=== PATIENT | female | born 1940 | race African-American/Black ===

== ENCOUNTER 2016-05-14 08:34 | Inpatient (IN) ==
[2016-05-14] MEDS ORDERED: GLUCAGON 1 MG VIAL IM PRN (10:06)
[2016-05-14] MEDS ORDERED: ONDANSETRON 4 MG/2 ML VIAL IV PRN (10:06)
[2016-05-14] MEDS ORDERED: MORPHINE 2 MG/1 ML SYRINGE IV PRN (10:06)
[2016-05-14] MEDS ORDERED: ACETAMINOPHEN 325 MG TABLET PO PRN (10:06)
[2016-05-14] MEDS ORDERED: ZALEPLON 5 MG CAPSULE PO PRN (10:06)
[2016-05-14] MEDS ORDERED: DEXTROSE 50% 25 GM/50 ML VIAL IV PRN (10:06)
[2016-05-14] MEDS ORDERED: traMADol 50 MG TABLET PO PRN (10:14)
[2016-05-14 13:46] LABS: Basophils # 0.2 10*3/uL (0.0-0.2); Basophils % 1.3 % (0.0-0.8); Eosinophils # 0.2 10*3/uL (0.0-0.87); Eosinophils % 0.9 % (0.00-10.9); Hematocrit 23.8 VOL% (35.7-47.0); Hemoglobin 7.5 GM/DL (12.0-16.0); Immature Granulocytes % 8.1 %; Immature Granulocytes Absolute 1.39 #; Lymphocytes # 3.9 10*3/uL (1.4-4.0); Lymphocytes % 22.8 % (21.3-54.2); Mean Corpuscular HGB Conc 31.5 GM/DL (32-36); Mean Corpuscular Hemoglobin 33 PG (27-34); Mean Corpuscular Volume 105.8 FL (87-102); Mean Platelet Volume 10.5 FL (9.6-12.0); Monocytes # 2.6 10*3/uL (0.11-0.8); Monocytes % 14.8 % (1.7-12.7); NRBC # 1.77 10*3/uL; Neutrophils % 52.1 % (38.7-73.9); Platelet Count 116 T/CUMM (130-400); Red Blood Count 2.25 MC/CUMM (3.8-5.5); Red Cell Distribution Width 16.9 % (9.3-17.3); White Blood Count 17.2 T/CUMM (4-12)
--- NOTE | 2016-05-14 14:08 | Hospitalist History & Physical ---
<Edouard Elliott - Last Filed: 05/14/16 15:12> Assessment and Plan (1) Macrocytic anemia Status: Acute Assessment and plan: We will type and screen, place blood on hold for possible transfusion if levels continue to decline. Spoke with patient and daughter in great detail and they are in agreement with the plan of care. Will obtain iron studies for analysis. Current Visit: No (2) Leukocytosis Status: Acute Assessment and plan: We will obtain galarza cultures and start empiric antibiotics. Current Visit: Yes Qualifiers: Leukocytosis type: unspecified Qualified Code(s): D72.829 - Elevated white blood cell count, unspecified History of Present Illness Chief complaint: Anemia/Leukocytosis History of present illness: Ms. Adams is a 75 year old female that presented to [facility] as a direct admission from her internal medical for the evaluation of anemia. She has a rather impressive medical history of diabetes, hypertension, dislipidemia, seasonal allergies, and sciatica. She has a medical history of cholecstectomy. She reports intermittant pain to her hands and hips that started a few months ago. [place] was [place] [facility] [place]. She last seen on yesterday and labs were obtained which revealed anemia with an H/H of 7.8/24.6 and hypercalcemia with a calcium of 11.6. She was given a consult to see Dr. Baron for evaluation for possible multiple myloma. She will be admitted under the hospitalist services for continuation of care. We will consult Dr. Baron and Dr. Feng to aid in the management of her care. Home Medications Medication Instructions Recorded Confirmed Type Aspirin [Ecotrin] 81 mg PO DAILY 09/03/14 05/14/16 History PARoxetine [Paxil] 20 mg PO DAILY 09/03/14 05/14/16 History Potassium Chloride 20 meq PO BEDTIME 09/03/14 05/14/16 History amLODIPine [Norvasc] 10 mg PO DAILY 09/03/14 05/14/16 History metFORMIN [Glucophage] 500 mg PO BID W/MEALS 09/03/14 05/14/16 History Ascorbic Acid Tab [Vitamin C Tab] 1,000 mg PO BID 12/18/15 05/14/16 History Cetirizine Tab [ZyrTEC Tab] 10 mg PO DAILY 12/18/15 05/14/16 History Cholecalciferol (Vitamin D3) 1,000 unit PO DAILY 12/18/15 05/14/16 History [Vitamin D3] Docusate Sodium Cap [Colace Cap] 100 mg PO BEDTIME PRN 12/18/15 05/14/16 History Fluticasone Propionate 1 spray BOTH NARES DAILY PRN 12/18/15 05/14/16 History [Fluticasone 50 mcg Nasal [place]] HydrOXYzine PAMOATE CAP [Vistaril 25 mg PO Q8H PRN 12/18/15 05/14/16 History Cap] Ketorolac Tab [Toradol Tab] 10 mg PO Q6H PRN 12/18/15 05/14/16 History Losartan [Cozaar] 100 mg PO DAILY 12/18/15 05/14/16 History Simvastatin [Zocor] 40 mg PO BEDTIME 12/18/15 05/14/16 History Spironolactone [Aldactone] 25 mg PO DAILY PRN 12/18/15 05/14/16 History Esomeprazole Magnesium [Nexium] 40 mg PO BID 30 Days 12/20/15 05/14/16 Rx Ferrous Gluconate 324 mg PO BID #0 12/20/15 05/14/16 Rx Allergies Allergy/AdvReac Type Severity Reaction Status Date / Time codeine Allergy Mild RASH Verified 12/18/15 02:15 metronidazole [From Flagyl] Allergy Mild RASH Verified 12/18/15 02:15 prednisone Allergy Mild RASH Verified 12/18/15 02:15 promethazine [From Phenergan] Allergy Mild RASH Verified 12/18/15 02:15 Medical,Surgical,& Family Hx - Medical History Cardio: History of: Hypertension No history of: Aneurysm, Cardiac Dysrhythmia, Cerebrovascular Disease, Congenital Heart Disease, CHF, CAD, [place], Pacemaker, PVD, Valvular Heart Disease, Cardiovascular Problems Neurology: No history of: Brain Aneurysm, Cerebral Hemorrhage, Cerebrovascular Accident , Cerebral Palsy, Dementia, Migraine, Multiple Sclerosis, Parkinson's Disease, Peripheral Neuropathy, Seizures, TIA, Vertigo, Neurologocal Cancer Endocrine: History of: Diabetes Mellitus (NIDDM) No history of: Dyslipidemia Respiratory: No history of: Asthma, Bronchitis, COPD, Intubation, Obstructive Sleep Apnea , Pulmonary Embolism, Pulmonary Hypertension, Pneumonia, Lung Cancer, Respiratory Problems Gastrointestinal: History of: GERD Musculoskeletal: History of: Musculoskeletal Problems (chronic hip pain) Hematology: History of: Anemia - Surgical History Cardiac Surgeries: Patient Denies: Femoral-Popliteal Bypass Graft, Cardiac Catheterization, Cardiac Surgery, Carotid Endarterectomy, Internal Defibrillator, Vascular Access Devices Thoracic Surgeries: Patient denies;: Organ Transplant, Lobectomy Neurologic Surgeries: Patient denies: Brain Aneurysm, Cerebral Hemorrhage, Neurologic Surgery HEENT Surgeries: Patient denies: Carotid Endarterectomy Abdominal Surgeries: Surgical HX of: Cholecystectomy Patient denies: Splenectomy - Family History Family History: Reports;: Family Hypertension - Social History Smoking Status: Current every day smoker - Constitutional Constitutional: Present: malaise, weakness - EENT Eyes: Absent: blurry vision, diplopia, loss of vision Ears: Absent: decreased hearing, ear discharge, ear pain, tinnitus Nose, mouth and throat: Absent: dysphagia, epistaxis - Cardiovascular Cardiovascular: Absent: chest pain at rest, chest pain with activity, dyspnea, dyspnea on exertion, edema, palpitations - Respiratory Respiratory: Absent: cough, dyspnea, hemoptysis, dyspnea on exertion - Gastrointestinal Gastrointestinal: Absent: melena, nausea, vomiting - Musculoskeletal Musculoskeletal: Present: arthralgias, myalgias Exam - Constitutional Vitals: Period Temp Pulse Resp BP Sys/[place] Pulse Ox Last 24 Hr 97.8 F 100 19 119/91 97 General appearance: normal weight, no acute distress - Head Head exam: Present: normal inspection, normocephalic. Absent: abrasion, contusion - Eye Eye exam: Present: conjunctival injection Pupils: Present: JOSE, normal accommodation. Absent: constricted - ENT ENT exam: Present: normal exam - Neck Neck exam: Present: normal inspection. Absent: lymphadenopathy, meningismus, tenderness - Respiratory Respiratory exam: Present: clear to auscultation bilaterally. Absent: rales, rhonchi, stridor, wheezes - Cardiovascular Cardiovascular exam: Present: regular rate and rhythm. Absent: carotid bruit, diastolic murmur, gallop, rubs, systolic murmur - GI/Abdominal GI/Abdominal exam: Present: normal bowel sounds, soft. Absent: distended, mass , tenderness - Extremities Exam Extremities exam: Present: normal inspection, normal capillary refill, full ROM - Back Exam Back exam: Present: normal inspection - Neurological Exam Neurological exam: Present: alert, oriented X3, CN II-XII intact - Psychiatric Psychiatric exam: Present: normal affect, normal mood - Skin Skin exam: Present: normal color, dry Results - Labs CBC & BMP: 05/14/16 13:16 05/14/16 13:16 Lab Results: I have reviewed the past 24 hour labs Quality Measures - VTE Contraindication to Pharmacological VTE Prophylaxis: Active Bleeding <Mena Ramos - Last Filed: 05/14/16 17:34> Assessment and Plan (1) Hypercalcemia Status: Acute Current Visit: Yes (2) Arthritis Status: Acute Current Visit: Yes (3) Leukocytosis Status: Acute Current Visit: Yes Qualifiers: Leukocytosis type: unspecified Qualified Code(s): D72.829 - Elevated white blood cell count, unspecified (4) Macrocytic anemia Status: Acute Current Visit: No History of Present Illness History of present illness: Ms. Adams is a 75 year old female with diabetes hypertension dyslipidemia and seasonal allergies as well as sciatic nerve pain in the right leg. She appears to have arthritic changes in her hands and shoulders. She was admitted for anemia with an elevated calcium and erythrocyte sedimentation rate. She reports a normal EGD and colonoscopy done in January [address] Feng. Her primary care physician was concerned that the patient may have multiple myeloma and has asked that we admit her for workup. Consult will be placed for hematology oncology, and the appropriate tests ordered. I evaluated this patient and completed an independent history and physical examination. I coordinated care with ZHANE Chan. I agree with the documentation that she provides above. Exam - Constitutional Vitals: Period Temp Pulse Resp BP Sys/[place] Pulse Ox Last 24 Hr 97.8 F-97.8 F 100-100 19-20 119-133/61-91 90-97 - Respiratory Respiratory exam: Present: clear to auscultation bilaterally - Cardiovascular Cardiovascular exam: Present: regular rate and rhythm - GI/Abdominal GI/Abdominal exam: Present: normal bowel sounds, soft. Absent: distended, tenderness - Extremities Exam Extremities exam: Present: other (Arthritic changes noted in the bilateral hands with clubbing. No cyanosis.) - Neurological Exam Neurological exam: Present: alert, oriented X3, CN II-XII intact - Psychiatric Psychiatric exam: Present: normal affect, normal mood - Skin Skin exam: Present: normal color, warm, dry Results - Labs CBC & BMP: 05/14/16 13:16 05/14/16 13:16 Lab Results: I have reviewed the past 24 hour labs
[2016-05-14] MEDS: SODIUM CHLORIDE 0.9% 1,000 ML IV SCH ×2 (14:15→21:24)
[2016-05-14] MEDS: INSULIN REGULAR 100 UNIT/ML SUBCUT SCH ×3 (14:16→20:43)
[2016-05-14 14:27] LABS: Alanine Aminotransferase 16 U/L (13-56); Albumin 4.1 G/DL (3.4-5.0); Alkaline Phosphatase 121 U/L (45-117); Aspartate Amino Transferase 25 U/L (0-37); Bilirubin,Total < 0.39 MG/DL (0.2-1.0); Blood Urea Nitrogen 28 MG/DL (7-18); Calcium 11.1 MG/DL (8.5-10.1); Cholesterol 138 MG/DL (50-200); Glucose 140 MG/DL (74-106); HDL Cholesterol 47 MG/DL (40-60); Magnesium 3.9 MG/DL (1.8-2.4); Risk Ratio 2.94; Sodium 143 MMOL/L (136-145); Thyroid Stimulating Hormone 0.649 uIU/ml (0.358-3.74); Total Protein 6.7 G/DL (6.4-8.3); Triglycerides 182 MG/DL (2-150); VLDL CHOLESTEROL 36.4 MG/DL
[2016-05-14] MEDS ORDERED: FLUTICASONE 50 MCG NASAL SPRAY 16 GM BOTTLE BOTH NARES PRN (15:12)
[2016-05-14] MEDS ORDERED: DOCUSATE SODIUM 100 MG CAPSULE PO PRN (15:12)
[2016-05-14] MEDS ORDERED: HydrOXYzine PAMOATE 25 MG CAPSULE PO PRN (15:12)
--- NOTE | 2016-05-14 15:20 | Gastrointestinal Consult Note ---
<Grace Hurd - Last Filed: 05/14/16 15:26> Assessment and Plan (1) Symptomatic anemia Status: Acute Assessment and plan: 4/5-Onset of weakness, fatigue with hx of AVMs, kev erosions. Recent EGD and colonoscopy. Hgb 7.5. No overt bleeding at present time. Stool for occult blood. Monitor serial HH. Transfuse as necessary. Plan and addendum to follow by DR Feng. Current Visit: No History of Present Illness Chief complaint: Anemia History of present illness: Ms. Adams is a 75 year old female who presented to the ER for admission following appointment on yesterday with her PCP Ginna Boateng. Pt states that she presented to the clinic for evaluation due to some weakness and cramps in her hands. She states that she had labwork done and was found to be anemic and was sent to the ER for further evaluation and blood transfusion. Pt states that she has been doing relatively well as of recent until the last several days she has experienced some increase fatigue. She states that she has not noted any overt bleeding, that her stools are dark but this is no change from her normal stool due to taking iron supplements. She denies any recent weight loss, nausea or vomiting. Denies any abdominal pain. Denies any epigastric pain, dyspepsia, belching, bloating or worsening GERD. She takes Nexium daily which she states control her reflux well. She denies any NSAID use and states she does not take the Toradol on her home med list. She has a history of anemia in December of this past year in which she underwent a GI workup with EGD with GERD and hiatal hernia with Kev erosions. She also had a colonoscopy with findings of colon polyps (hyperplastic polyp), diverticulosis with scarring and right colon angiodysplasia. Her discharge hemoglobin in December noted at 8.3 now admitted with hemoglobin at 7.5. MCV 105, BUN/Cr ratio 16. Home Medications Medication Instructions Recorded Confirmed Type Aspirin [Ecotrin] 81 mg PO DAILY 09/03/14 05/14/16 History PARoxetine [Paxil] 20 mg PO DAILY 09/03/14 05/14/16 History Potassium Chloride 20 meq PO BEDTIME 09/03/14 05/14/16 History amLODIPine [Norvasc] 10 mg PO DAILY 09/03/14 05/14/16 History metFORMIN [Glucophage] 500 mg PO BID W/MEALS 09/03/14 05/14/16 History Ascorbic Acid Tab [Vitamin C Tab] 1,000 mg PO BID 12/18/15 05/14/16 History Cetirizine Tab [ZyrTEC Tab] 10 mg PO DAILY 12/18/15 05/14/16 History Cholecalciferol (Vitamin D3) 1,000 unit PO DAILY 12/18/15 05/14/16 History [Vitamin D3] Docusate Sodium Cap [Colace Cap] 100 mg PO BEDTIME PRN 12/18/15 05/14/16 History Fluticasone Propionate 1 spray BOTH NARES DAILY PRN 12/18/15 05/14/16 History [Fluticasone 50 mcg Nasal [place]] HydrOXYzine PAMOATE CAP [Vistaril 25 mg PO Q8H PRN 12/18/15 05/14/16 History Cap] Ketorolac Tab [Toradol Tab] 10 mg PO Q6H PRN 12/18/15 05/14/16 History Losartan [Cozaar] 100 mg PO DAILY 12/18/15 05/14/16 History Simvastatin [Zocor] 40 mg PO BEDTIME 12/18/15 05/14/16 History Spironolactone [Aldactone] 25 mg PO DAILY PRN 12/18/15 05/14/16 History Esomeprazole Magnesium [Nexium] 40 mg PO BID 30 Days 12/20/15 05/14/16 Rx Ferrous Gluconate 324 mg PO BID #0 12/20/15 05/14/16 Rx Allergies Allergy/AdvReac Type Severity Reaction Status Date / Time codeine Allergy Mild RASH Verified 12/18/15 02:15 metronidazole [From Flagyl] Allergy Mild RASH Verified 12/18/15 02:15 prednisone Allergy Mild RASH Verified 12/18/15 02:15 promethazine [From Phenergan] Allergy Mild RASH Verified 12/18/15 02:15 Medical,Surgical,& Family Hx - Medical History Cardio: History of: Hypertension No history of: Aneurysm, Cardiac Dysrhythmia, Cerebrovascular Disease, Congenital Heart Disease, CHF, CAD, [place], Pacemaker, PVD, Valvular Heart Disease, Cardiovascular Problems Neurology: No history of: Brain Aneurysm, Cerebral Hemorrhage, Cerebrovascular Accident , Cerebral Palsy, Dementia, Migraine, Multiple Sclerosis, Parkinson's Disease, Peripheral Neuropathy, Seizures, TIA, Vertigo, Neurologocal Cancer Endocrine: History of: Diabetes Mellitus (NIDDM) No history of: Dyslipidemia Respiratory: No history of: Asthma, Bronchitis, COPD, Intubation, Obstructive Sleep Apnea , Pulmonary Embolism, Pulmonary Hypertension, Pneumonia, Lung Cancer, Respiratory Problems Gastrointestinal: History of: GERD Musculoskeletal: History of: Musculoskeletal Problems (chronic hip pain) Hematology: History of: Anemia - Surgical History Cardiac Surgeries: Patient Denies: Femoral-Popliteal Bypass Graft, Cardiac Catheterization, Cardiac Surgery, Carotid Endarterectomy, Internal Defibrillator, Vascular Access Devices Thoracic Surgeries: Patient denies;: Organ Transplant, Lobectomy Neurologic Surgeries: Patient denies: Brain Aneurysm, Cerebral Hemorrhage, Neurologic Surgery HEENT Surgeries: Patient denies: Carotid Endarterectomy Abdominal Surgeries: Surgical HX of: Cholecystectomy Patient denies: Splenectomy - Family History Family History: Reports;: Family Hypertension - Social History Smoking Status: Current every day smoker 12 point system: reviewed and no additional remarkable complaints except as stated - Constitutional Constitutional: Present: as per HPI, weakness - EENT Eyes: Present: as per HPI Ears: Present: as per HPI Nose, mouth and throat: Present: as per HPI - Cardiovascular Cardiovascular: Present: as per HPI - Respiratory Respiratory: Present: as per HPI - Gastrointestinal Gastrointestinal: Present: as per HPI - Genitourinary Genitourinary: Present: as per HPI - Musculoskeletal Musculoskeletal: Present: as per HPI - Neurological Neurological: Present: as per HPI - Psychiatric Psychiatric: Present: as per HPI - Endocrine Endocrine: Present: as per HPI - Hematologic/Lymphatic Hematologic/Lymphatic: Present: as per HPI Exam - Constitutional Vitals: Period Temp Pulse Resp BP Sys/[place] Pulse Ox Last 24 Hr 97.8 F 100 19 119/91 97 General appearance: normal weight, no acute distress - Head Head exam: Present: normal inspection, normocephalic - Eye Eye exam: Present: other (lids and conjunctiva unremarkable). Absent: scleral icterus - ENT ENT exam: Present: normal exam, normal oropharynx - Neck Neck exam: Present: normal inspection - Respiratory Respiratory exam: Present: clear to auscultation bilaterally. Absent: rales, rhonchi, wheezes - Cardiovascular Cardiovascular exam: Present: regular rate and rhythm. Absent: diastolic murmur , JVD, systolic murmur - GI/Abdominal GI/Abdominal exam: Present: normal bowel sounds, soft. Absent: ascites, distended, mass, organomegaly, tenderness - Extremities Exam Extremities exam: Present: normal inspection, full ROM - Back Exam Back exam: Present: normal inspection - Neurological Exam Neurological exam: Present: alert, oriented X3 - Psychiatric Psychiatric exam: Present: normal affect, normal mood - Skin Skin exam: Present: normal color, warm, dry Results - Labs CBC & BMP: 05/14/16 13:16 05/14/16 13:16 Lab Results: I have reviewed the past 24 hour labs Quality Measures - VTE Contraindication to Pharmacological VTE Prophylaxis: Active Bleeding <Linden Feng - Last Filed: 05/14/16 18:53> History of Present Illness History of present illness: Ms. Adams is a 75 year old female Exam - Constitutional Vitals: Period Temp Pulse Resp BP Sys/[place] Pulse Ox Last 24 Hr 97.8 F-97.8 F 100-100 19-20 119-133/61-91 90-97 Results - Labs CBC & BMP: 05/14/16 13:16 05/14/16 13:16
--- NOTE | 2016-05-14 17:10 | Oncology Consult Note ---
History of Present Illness History of present illness: Ms. Adams is a 75 year old female who was supposed to see me in my office for low blood counts. She has been documented to have a hemoglobin of 9.0 on March 27, [address] Boateng's office. She was reported to have a normal platelet count of 141,000 and actually had a white cell count of 12,800 at that time. She was noted to have an MCV of 103.5 with a high RDW of 16.1. Her reticulocyte count on that same date was 2.7 but this was uncorrected and would be either normal or low when corrected. I note that on March 27, 2016 the patient had a serum creatinine of 1.36 which is slightly higher with a serum calcium of 10.3 and an alkaline phosphatase that was minimally elevated at 120. The rest of her comprehensive metabolic profile was normal. This patient's home medications include Ecotrin, Paxil, potassium chloride, amlodipine, metformin, ascorbic acid, cetirizine, vitamin D3, docusate, Toradol , Cozaar, Zocor, Aldactone, Nexium and ferrous gluconate. Allergies include: Codeine, metronidazole, prednisone and promethazine ( Phenergan). ROS Gen.: No history of fever, chills, fatigue, decreased appetite, night sweats, fever, weight gain or weight loss. Eyes: No history of chronic disease, infections or visual loss. ENT: She has a history of postnasal drainage. No history of chronic infections , epistaxis, chronic sore throat Lungs: She has a history of chronic cough without sputum production. No history of asthma, emphysema, hemoptysis, chronic pleurisy or long-term or chronic infections Cardiovascular: She has a history of irregular heartbeat and palpitations. No history of syncope. No history of angina, coronary artery disease, congestive heart failure, cardiovascular surgery or DVT/VTE Vascular: No history of claudication, cyanosis, cool extremities, edema, right nods, thrombophlebitis, varicose veins, ulcers or paresthesia GI: She reports blood in her stools and she also reports constipation as well as esophageal reflux. No history of liver disease, gallbladder disease or pancreatic disease. : History of back pain but no history of kidney stones, chronic kidney infections or hematuria. Musculoskeletal: She has a history of back pain, bone and joint aches and pains , muscle weakness and neck stiffness. No history of rheumatologic manifestations. Neurologic: She has a history of headaches. No history of seizures, convulsions or paralysis. Psychiatric: No history of chronic psychiatric illness or psychiatric medications. Lymphatic: No history of significant or long-term lymphadenopathy Hematologic: No history of anemia, bleeding disorders or blood dyscrasias or long-term elevation or depression white cell count or petechiae. Skin: No history of chronic skin infections or rashes or significant skin lesions. Physical examination: General: Examination is relatively normal for age. She is well-developed, well- nourished and in no acute distress. Eyes: Lids and conjunctive are normal. ENT: Her oral mucosa and pharynx are normal. Her hearing is normal. Neck: Her trachea is midline and she has no neck masses. Thyroid appears normal. Pulmonary: Breath sounds are normal without rubs, rales or rhonchi. There is symmetrical unlabored chest motion with respiration. Cardiovascular: Her heart rhythm is regular with a grade 2/6 systolic ejection murmur heard best in the second left intercostal space or possibly on the right side. There is no jugular venous distention. Peripheral pulses are normal. Abdomen: I palpate no abdominal masses or organomegaly and no splenomegaly. Musculoskeletal: She has arthritis and some of it is in the proximal interphalangeal joints of the metacarpal/phalangeal joints. Neurologic: Cranial nerves II through XII are intact. There are no focal neurologic deficits. Nodes: There is no cervical, supraclavicular, axillary or submandibular adenopathy. Skin: I see no significant skin lesions or rashes. Breasts: Breast examination was deferred. Lab work on this admission includes white cell count of 17,200 with a hemoglobin of 7.5 and a hematocrit of 23.8. Her MCV is 105.8 with an RDW that is normal at 16.9. Her platelet count is 116,000 with a normal mean platelet volume of 10.5. Her comprehensive metabolic profile includes a serum calcium of 11.1. Let us stop her vitamin D. The patient also has a serum creatinine of 1.7 and a serum magnesium of 3.9. I have ordered a serum iron and iron binding capacity, folic acid and B12 level , haptoglobin, rheumatoid factor and JOHNNIE and I will order a reticulocyte count as well. I think it at least a component of her anemia is due to chronic disease and I am testing her for rheumatologic disease. She has renal disease that may be contributing as well. See my orders. Home Medications Medication Instructions Recorded Confirmed Type Aspirin [Ecotrin] 81 mg PO DAILY 09/03/14 05/14/16 History PARoxetine [Paxil] 20 mg PO DAILY 09/03/14 05/14/16 History Potassium Chloride 20 meq PO BEDTIME 09/03/14 05/14/16 History amLODIPine [Norvasc] 10 mg PO DAILY 09/03/14 05/14/16 History metFORMIN [Glucophage] 500 mg PO BID W/MEALS 09/03/14 05/14/16 History Ascorbic Acid Tab [Vitamin C Tab] 1,000 mg PO BID 12/18/15 05/14/16 History Cetirizine Tab [ZyrTEC Tab] 10 mg PO DAILY 12/18/15 05/14/16 History Cholecalciferol (Vitamin D3) 1,000 unit PO DAILY 12/18/15 05/14/16 History [Vitamin D3] Docusate Sodium Cap [Colace Cap] 100 mg PO BEDTIME PRN 12/18/15 05/14/16 History Fluticasone Propionate 1 spray BOTH NARES DAILY PRN 12/18/15 05/14/16 History [Fluticasone 50 mcg Nasal [place]] HydrOXYzine PAMOATE CAP [Vistaril 25 mg PO Q8H PRN 12/18/15 05/14/16 History Cap] Ketorolac Tab [Toradol Tab] 10 mg PO Q6H PRN 12/18/15 05/14/16 History Losartan [Cozaar] 100 mg PO DAILY 12/18/15 05/14/16 History Simvastatin [Zocor] 40 mg PO BEDTIME 12/18/15 05/14/16 History Spironolactone [Aldactone] 25 mg PO DAILY PRN 12/18/15 05/14/16 History Esomeprazole Magnesium [Nexium] 40 mg PO BID 30 Days 12/20/15 05/14/16 Rx Ferrous Gluconate 324 mg PO BID #0 12/20/15 05/14/16 Rx Allergies Allergy/AdvReac Type Severity Reaction Status Date / Time codeine Allergy Mild RASH Verified 12/18/15 02:15 metronidazole [From Flagyl] Allergy Mild RASH Verified 12/18/15 02:15 prednisone Allergy Mild RASH Verified 12/18/15 02:15 promethazine [From Phenergan] Allergy Mild RASH Verified 12/18/15 02:15 Medical,Surgical,& Family Hx - Medical History Cardio: History of: Hypertension No history of: Aneurysm, Cardiac Dysrhythmia, Cerebrovascular Disease, Congenital Heart Disease, CHF, CAD, NC, Pacemaker, PVD, Valvular Heart Disease, Cardiovascular Problems Neurology: No history of: Brain Aneurysm, Cerebral Hemorrhage, Cerebrovascular Accident , Cerebral Palsy, Dementia, Migraine, Multiple Sclerosis, Parkinson's Disease, Peripheral Neuropathy, Seizures, TIA, Vertigo, Neurologocal Cancer Endocrine: History of: Diabetes Mellitus (NIDDM) No history of: Dyslipidemia Respiratory: No history of: Asthma, Bronchitis, COPD, Intubation, Obstructive Sleep Apnea , Pulmonary Embolism, Pulmonary Hypertension, Pneumonia, Lung Cancer, Respiratory Problems Gastrointestinal: History of: GERD Musculoskeletal: History of: Musculoskeletal Problems (chronic hip pain) Hematology: History of: Anemia - Surgical History Cardiac Surgeries: Patient Denies: Femoral-Popliteal Bypass Graft, Cardiac Catheterization, Cardiac Surgery, Carotid Endarterectomy, Internal Defibrillator, Vascular Access Devices Thoracic Surgeries: Patient denies;: Organ Transplant, Lobectomy Neurologic Surgeries: Patient denies: Brain Aneurysm, Cerebral Hemorrhage, Neurologic Surgery HEENT Surgeries: Patient denies: Carotid Endarterectomy Abdominal Surgeries: Surgical HX of: Cholecystectomy Patient denies: Splenectomy - Family History Family History: Reports;: Family Hypertension - Social History Smoking Status: Current every day smoker Exam - Constitutional Vitals: Period Temp Pulse Resp BP Sys/[place] Pulse Ox Last 24 Hr 97.8 F-97.8 F 100-100 19-20 119-133/61-91 90-97 Results - Labs CBC & BMP: 05/14/16 13:16 05/14/16 13:16 Quality Measures - VTE Contraindication to Pharmacological VTE Prophylaxis: Active Bleeding
[2016-05-14 17:51] LABS: Band Neutrophils 7 % (0-10); Lymphocytes 31 % (20-55); Nucleated Red Blood Cells 8 (0-5); Platelet Estimate Normal; Polychromasia Slight; Segmented Neutrophils 59 % (50-85); Total Cells Counted 100
[2016-05-14 18:06] LABS: % Iron Saturation 42.6 % (18-50); Iron 163 UG/DL (50-170); Iron Binding Capacity 383 UG/DL (250-450); Rheumatoid Factor < 15 IU/ML (<15)
[2016-05-14 18:39] LABS: Folate 18.1 NG/ML (5.4-24.0); Vitamin B12 1573 PG/ML (211-911)
[2016-05-14 18:43] LABS: Apearance,Urine Slightly Hazy (Clear); Bacteria,Urine Occasional /HPF (Few); Bilirubin,Urine Negative (Negative); Blood, Urine Negative (Negative); Glucose,Urine (UA) Negative (Negative); Ketones,Urine Negative (Negative); Mucus,Urine Moderate /LPF (Occasional); Nitrite,Urine Negative (Negative); Protein,Urine 100 MG/DL; RBC,Urine 2 /HPF (0-4); Squamous Epithelial Cell,Urine Occasional /HPF (0-10); Urine Color Yellow (Yellow); Urine Specific Gravity 1.023 (1.001-1.035); Urine Urobilinogen < 2.0 EU/DL (0.2-1.0); WBC,Urine 26 /HPF (0-6)
[2016-05-14] MEDS ORDERED: PANTOPRAZOLE 40 MG TABLET PO SCH (21:00)
[2016-05-14] MEDS ORDERED: SIMVASTATIN 40 MG TABLET PO SCH (21:00)
[2016-05-14] MEDS ORDERED: POTASSIUM CHLORIDE 10 MEQ TABLET PO SCH (21:00)
[2016-05-14] MEDS ORDERED: ASCORBIC ACID 500 MG TABLET PO SCH (21:00)
[2016-05-14] MEDS ORDERED: FERROUS GLUCONATE 324 MG TABLET PO SCH (21:00)
[2016-05-15 04:51] LABS: Basophils # 0.2 10*3/uL (0.0-0.2); Basophils % 1.2 % (0.0-0.8); Eosinophils # 0.1 10*3/uL (0.0-0.87); Hematocrit 21.2 VOL% (35.7-47.0); Immature Granulocytes % 8.9 %; Immature Granulocytes Absolute 1.17 #; Lymphocytes # 3.5 10*3/uL (1.4-4.0); Lymphocytes % 26.8 % (21.3-54.2); Mean Corpuscular HGB Conc 30.2 GM/DL (32-36); Mean Corpuscular Hemoglobin 33 PG (27-34); Mean Corpuscular Volume 107.6 FL (87-102); Monocytes % 14.9 % (1.7-12.7); NRBC # 1.15 10*3/uL; Neutrophils # 6.2 10*3/uL (1.4-7.4); Neutrophils % 47.2 % (38.7-73.9); Platelet Count 104 T/CUMM (130-400); Red Blood Count 1.97 MC/CUMM (3.8-5.5); Red Cell Distribution Width 17.2 % (9.3-17.3); White Blood Count 13.1 T/CUMM (4-12)
[2016-05-15 04:55] LABS: Hemoglobin 6.4 GM/DL (12.0-16.0)
[2016-05-15] MEDS: SODIUM CHLORIDE 0.9% 1,000 ML IV SCH ×2 (05:06→14:00)
[2016-05-15] MEDS ORDERED: SODIUM CHLORIDE 0.9% 250 ML IV PRN (05:13)
[2016-05-15 05:22] LABS: % Iron Saturation 42.1 % (18-50); Ferritin 496.8 ng/ml (8-252)
[2016-05-15 05:26] LABS: Albumin 3.4 G/DL (3.4-5.0); Bilirubin,Total 0.5 MG/DL (0.2-1.0); Calcium 9.6 MG/DL (8.5-10.1); Osmolality,Calculated 298.4 MOS/KG (273-304); Potassium 3.7 MMOL/L (3.5-5.1); Total Protein 5.5 G/DL (6.4-8.3)
[2016-05-15 05:37] LABS: Folate 17.8 NG/ML (5.4-24.0); Vitamin B12 1568 PG/ML (211-911)
[2016-05-15 05:47] LABS: Band Neutrophils 10 % (0-10); Eosinophils 1 % (0-10); Lymphocytes 21 % (20-55); Metamyelocytes 1 %; Myelocytes 3 %; Nucleated Red Blood Cells 16 (0-5); Segmented Neutrophils 54 % (50-85); Total Cells Counted 100
[2016-05-15 05:48] LABS: Elliptocytes Few; Hypochromasia 1+; Microcytosis Slight; Platelet Estimate Decreased
[2016-05-15 06:47] LABS: Basophils # 0.2 10*3/uL (0.0-0.2); Basophils % 1.2 % (0.0-0.8); Eosinophils # 0.1 10*3/uL (0.0-0.87); Eosinophils % 0.8 % (0.00-10.9); Hematocrit 20.6 VOL% (35.7-47.0); Immature Granulocytes % 8.8 %; Immature Granulocytes Absolute 1.14 #; Lymphocytes # 3.6 10*3/uL (1.4-4.0); Lymphocytes % 27.4 % (21.3-54.2); Mean Corpuscular HGB Conc 31.1 GM/DL (32-36); Mean Corpuscular Hemoglobin 34 PG (27-34); Mean Corpuscular Volume 108.4 FL (87-102); Mean Platelet Volume 10.7 FL (9.6-12.0); Monocytes # 1.9 10*3/uL (0.11-0.8); Monocytes % 14.4 % (1.7-12.7); NRBC # 1.09 10*3/uL; Neutrophils # 6.2 10*3/uL (1.4-7.4); Neutrophils % 47.4 % (38.7-73.9); Platelet Count 112 T/CUMM (130-400); Red Cell Distribution Width 17.2 % (9.3-17.3)
[2016-05-15 06:53] LABS: Hemoglobin 6.4 GM/DL (12.0-16.0)
[2016-05-15 07:32] LABS: Albumin (SPE) 4.1 G/DL (3.2-5.3)
[2016-05-15 07:36] LABS: Albumin (SPE) Rel % 67.6 %; Alpha 1 (SPE) 0.2 G/DL (0.1-0.4); Alpha 1 (SPE) Rel % 3.9 %; Alpha 2 (SPE) 0.8 G/DL (0.4-1.0); Alpha 2 (SPE) Rel % 12.6 %; Beta (SPE) 0.6 G/DL (0.5-1.1); Beta (SPE) Rel % 10.7 %; Gamma (SPE) 0.3 G/DL (0.7-1.7); Gamma (SPE) Rel % 5.2 %
[2016-05-15 07:43] LABS: Band Neutrophils 8 % (0-10); Lymphocytes 34 % (20-55); Myelocytes 1 %; Nucleated Red Blood Cells 11 (0-5); Segmented Neutrophils 48 % (50-85); Total Cells Counted 100
[2016-05-15 07:44] LABS: Elliptocytes Few; Hypochromasia 1+; Platelet Estimate Decreased
[2016-05-15 07:45] LABS: Microcytosis Slight
[2016-05-15] MEDS: PANTOPRAZOLE 40 MG TABLET PO SCH ×2 (08:00→17:10)
[2016-05-15] MEDS: FERROUS GLUCONATE 324 MG TABLET PO SCH ×2 (08:00→17:09)
[2016-05-15] MEDS: INSULIN REGULAR 100 UNIT/ML SUBCUT SCH ×4 (08:08→21:32)
[2016-05-15] MEDS ORDERED: PANTOPRAZOLE 40 MG TABLET PO SCH (09:00)
[2016-05-15] MEDS ORDERED: CHOLECALCIFEROL 1,000 UNIT TABLET PO SCH (09:00)
--- NOTE | 2016-05-15 09:22 | Oncology Progress Note ---
Oncology Subjective PN Interval history: Lab work today includes a white cell count of 13,000 with a hemoglobin of 6.4, and MCV of 108.4, and RDW of 17.2, platelet count of 112,000. The patient has nucleated red cells in her circulation. Her sed rate is 60. Her uncorrected reticulocyte count is 3.7. It should be approximately half of this when corrected. Hemoglobin electrophoresis is pending. Haptoglobin level is elevated at 219. The patient's serum iron is 135, which is normal, with a normal iron binding capacity of 321. The B12 level is 1568 with folic acid level of 17.8. These were repeated because I could not tell from the electronic medical record will they have been done or not. A rheumatoid factor is less than 15. The serum protein electrophoresis is interpreted as demonstrating hyperglobulinemia. I am going to order serum free light chain and I am going to order a screen for [facility]. Maybe they will get done or may be not. Exam - Constitutional Vitals: Period Temp Pulse Resp BP Sys/[place] Pulse Ox Last 24 Hr 97.8 F-98.8 F 89-103 18-24 119-164/59-91 90-100 Results - Labs CBC & BMP: 05/15/16 03:48 05/15/16 03:48 Quality Measures - VTE Contraindication to Pharmacological VTE Prophylaxis: Active Bleeding
--- NOTE | 2016-05-15 09:48 | History and Physical Update ---
History and Physical Update - Physical Exam Mental Status: alert and oriented Heart: regular rate and rhythm Lung: clear to auscultation Abdomen: within normal limits Vitals: within normal limits
--- NOTE | 2016-05-15 09:51 | Operative Note ---
Date of procedure: 05/15/16 Pre-op diagnosis: Recurrent anemia with history of angiodysplasia Procedure: EGD with biopsy 75-year-old female admitted with severe anemia has history of angiodysplasia now for upper endoscopy to further evaluate. Informed consent was obtained for patient She was sedated with MAC anesthesia per anesthesia protocol. Patient placed in left lateral decubitus position the Olympus flexible video upper endoscope was inserted lower cavity under direct vision the esophagus was intubated. Findings: Esophagus-normal proximal mid esophageal mucosa distal esophagus small hiatal hernia otherwise normal no significant esophagitis, varices or stricture was seen. Stomach-normal insufflation. No blood present stomach. There is normal mucosa to direct retroflexed views of the body fundus and cardia the stomach. In the antrum of the stomach there are several superficial areas of small ulceration and erosion. Biopsies were taken. Scattered AVMs are seen without active bleeding. Pylorus is normal Duodenum normal bulb to third portion. The procedure was terminated placed our procedure well she is discharged recovery in good condition. Postop diagnosis: 1. Gastroesophageal reflux disease with small hiatal hernia-continue PPI and antireflux precautions. 2. Erosive gastritis-stop nonsteroidals (Toradol) and continue with twice daily PPI treatment. Follow-up biopsies positive for H. pylori will need treatment. 3. Angiodysplasia likely source of ongoing blood loss. Check bleeding scan if active bleeding develops otherwise will need to maximize blood production and transfuse as needed 4. Recent colonoscopy would not plan repeat colonoscopy unless evidence of active ongoing bleeding on bleeding scan. 5. I will be out over the next few days call coverage if needed I will check back on her Thursday if she remains hospitalized. Anesthesia: MAC Surgeon / Physician: Linden Feng Estimated blood loss: none Specimens: other (Erosive gastritis) Condition: stable Disposition: post procedure unit Results - Labs CBC & BMP: 05/15/16 03:48 05/15/16 03:48 Discharge Plan - Discharge Medications No Action metFORMIN [Glucophage] 500 mg PO BID W/MEALS Aspirin [Ecotrin] 81 mg PO DAILY amLODIPine [Norvasc] 10 mg PO DAILY Potassium Chloride 20 meq PO BEDTIME PARoxetine [Paxil] 20 mg PO DAILY Fluticasone Propionate [Fluticasone 50 mcg Nasal [place]] 1 spray BOTH NARES DAILY PRN PRN Reason: Nasal Congestion Spironolactone [Aldactone] 25 mg PO DAILY PRN PRN Reason: Edema Simvastatin [Zocor] 40 mg PO BEDTIME Cetirizine Tab [ZyrTEC Tab] 10 mg PO DAILY Losartan [Cozaar] 100 mg PO DAILY Docusate Sodium Cap [Colace Cap] 100 mg PO BEDTIME PRN PRN Reason: Constipation Cholecalciferol (Vitamin D3) [Vitamin D3] 1,000 unit PO DAILY Ascorbic Acid Tab [Vitamin C Tab] 1,000 mg PO BID Ketorolac Tab [Toradol Tab] 10 mg PO Q6H PRN PRN Reason: Pain HydrOXYzine PAMOATE CAP [Vistaril Cap] 25 mg PO Q8H PRN PRN Reason: Itching Esomeprazole Magnesium [Nexium] 40 mg PO BID 30 Days Ferrous Gluconate 324 mg PO BID #0 - Follow Up or Referral - Forms/Instructions
--- NOTE | 2016-05-15 09:52 | Anesthesia ---
Anesthesia Post OP - Post Ansesthetic Evaluation Patient seen in post op: Yes Resp: within normal limits CV: within normal limits Mental: within normal limits Temp: within normal limits [id number]: within normal limits Nausea and Vomiting: within normal limits Pain: within normal limits
[2016-05-15 09:55] LABS: Hemoglobin A1 (Alkaline) 97.9 % (96.5-98.5); Hemoglobin A2 (Alkaline) 2.1 % (1.5-3.5)
[2016-05-15 11:14] LABS: Immuno Free Light Chain Lambda 0.72 MG/DL (0.57-2.63)
[2016-05-15 11:45] LABS: Immuno Free Light Chain Ratio 1627.78 MG/DL (0.26-1.65)
[2016-05-15] MEDS: ASPIRIN EC 81 MG TABLET PO SCH (12:20)
[2016-05-15] MEDS: LOSARTAN 50 MG TABLET PO SCH (12:20)
[2016-05-15] MEDS: amLODIPine 10 MG TABLET PO SCH (12:20)
[2016-05-15] MEDS: PARoxetine 20 MG TABLET PO SCH (12:21)
[2016-05-15] MEDS: CETIRIZINE 10 MG TABLET PO SCH (12:21)
--- NOTE | 2016-05-15 13:42 | Hospitalist Progress Note ---
Assessment and Plan (1) Hypercalcemia Status: Acute Current Visit: Yes (2) Arthritis Status: Acute Current Visit: Yes (3) Leukocytosis Status: Acute Assessment and plan: No evidence of ongoing infection. Current Visit: Yes Qualifiers: Leukocytosis type: unspecified Qualified Code(s): D72.829 - Elevated white blood cell count, unspecified (4) Macrocytic anemia Status: Acute Assessment and plan: Iron and B12 and folate levels checked. Transfused 2 units of packed red blood cells. No evidence of GI bleeding. Likely anemia of chronic disease. hematology workup pending. Current Visit: No Hospitalist: Subjective Interval history: Patient seen and examined with her daughter and nurse at the bedside. She reports severe pain in her hands from arthritis. She has received blood transfusion this morning due to a low hemoglobin of 6.4. She has undergone upper endoscopy by Dr. Feng which showed no evidence of active bleeding. Case was discussed with Dr. Baron this morning. Further testing has been ordered including a 24-hour urine. If her blood counts are stable she can be discharged tomorrow morning to follow- up as an outpatient with Dr. Baron scheduled on May 21. Exam - Constitutional Vitals: Period Temp Pulse Resp BP Sys/[place] Pulse Ox Last 24 Hr 97.7 F-98.8 F 89-103 18-98 133-170/57-77 90-100 Exam: Constitutional System: Mild distress. No tremulousness. Head: Normocephalic, atraumatic. Ears, Nose and Throat System: No pain or tenderness. No epistaxis or discharge Eyes System: Pupils equal, round, and reactive. Extraocular muscles intact. Neck: Supple, without adenopathy, No jugular venous distention. No thyromegaly, neck mass, or prior surgery apparent. Respiratory System: Chest clear to auscultation. Cardiovascular System: Heart with regular rate and rhythm. No murmur. GI System: Abdomen soft, nontender. Normo active bowel sounds present. Musculoskeletal System: limbs with no pedal edema. Full distal pulses. Arthritic changes noted in bilateral hands. Clubbing noted in the nails. Neurological System: No discernable sensory deficit. No aphasia Psychiatric System: Conversation is rational Results - Labs CBC & BMP: 05/15/16 03:48 05/15/16 03:48 Lab Results: I have reviewed the past 24 hour labs Quality Measures - VTE Contraindication to Pharmacological VTE Prophylaxis: Active Bleeding
[2016-05-15] MEDS: POTASSIUM CHLORIDE 10 MEQ TABLET PO SCH (17:09)
[2016-05-15] MEDS: SIMVASTATIN 40 MG TABLET PO SCH (17:10)
[2016-05-15 17:50] LABS: Basophils # 0.1 10*3/uL (0.0-0.2); Basophils % 0.9 % (0.0-0.8); Eosinophils # 0.1 10*3/uL (0.0-0.87); Eosinophils % 1.4 % (0.00-10.9); Hematocrit 28.2 VOL% (35.7-47.0); Hemoglobin 9.3 GM/DL (12.0-16.0); Immature Granulocytes % 9.3 %; Immature Granulocytes Absolute 0.92 #; Lymphocytes # 1.8 10*3/uL (1.4-4.0); Lymphocytes % 17.9 % (21.3-54.2); Mean Corpuscular Hemoglobin 33 PG (27-34); Mean Corpuscular Volume 98.6 FL (87-102); Mean Platelet Volume 10.2 FL (9.6-12.0); Monocytes # 1.6 10*3/uL (0.11-0.8); Monocytes % 16.2 % (1.7-12.7); NRBC # 1.13 10*3/uL; Neutrophils # 5.4 10*3/uL (1.4-7.4); Neutrophils % 54.3 % (38.7-73.9); Platelet Count 92 T/CUMM (130-400); Red Blood Count 2.86 MC/CUMM (3.8-5.5); Red Cell Distribution Width 17.5 % (9.3-17.3); White Blood Count 9.9 T/CUMM (4-12)
[2016-05-15 22:16] LABS: Band Neutrophils 5 % (0-10); Hypochromasia 1+; Lymphocytes 18 % (20-55); Metamyelocytes 1 %; Myelocytes 1 %; Nucleated Red Blood Cells 5 (0-5); Segmented Neutrophils 73 % (50-85); Total Cells Counted 100
[2016-05-15 22:17] LABS: Microcytosis 1+; Platelet Estimate Decreased; Polychromasia Few
[2016-05-16] MEDS: SODIUM CHLORIDE 0.9% 1,000 ML IV SCH ×3 (01:20→16:59)
--- NOTE | 2016-05-16 06:39 | Gastrointestinal Progress Note ---
Assessment and Plan (1) Erosive gastritis with hemorrhage Status: Acute Assessment and plan: This patient is being seen for Dr. Feng while he is off for the weekend. Erosive gastritis discovered on endoscopy done on 05/15/[address] Feng, this appears to be clinically stable, we are waiting hematocrit from today to decide whether or not to discharge patient versus obtaining a tagged red blood cell scan to see if there is another bleeding source. Patient feels fine she is eating well. She does desire a laxative to help her with the constipation she is experiencing from her iron intake. MiraLAX written. I suspect that if her hematocrit is stable she could be discharged today. Current Visit: Yes (2) Acute posthemorrhagic anemia Status: Acute Assessment and plan: Awaiting hematocrit from today. Potential discharge today. Suggest a proton pump inhibitor on discharge--> continue Nexium but take this prior to suppertime for best effect. Patient is advised to avoid aspirin and other NSAIDs for at least a month and then take these with food thereafter. Follow- up with Dr. Feng as needed. Current Visit: Yes (3) Personal history of arterial venous malformation (AVM) Status: Acute Assessment and plan: The patient has a history of Kev's ulcers as well as AVM, these were not seen during upper endoscopy. Current Visit: Yes Gastroenterology - PN: Subj Interval history: No new complaints, no bowel movements, patient is tolerating her oral intake well. She does request MiraLAX for constipation. Exam (Progress Note) - Constitutional Vitals: Period Temp Pulse Resp BP Sys/[place] Pulse Ox Last 24 Hr 96.8 F-98.6 F 89-101 16-98 139-170/57-77 94-100 General appearance: over weight - Eye Eye exam: Present: EOMI Pupils: Present: JOSE - Respiratory Respiratory exam: Present: clear to auscultation bilaterally - Cardiovascular Cardiovascular exam: Present: regular rate and rhythm - GI/Abdominal GI/Abdominal exam: Present: normal bowel sounds, soft. Absent: distended, guarding, tenderness, rebound - Neurological Exam Neurological exam: Present: alert, oriented X3 - Psychiatric Psychiatric exam: Present: normal affect, normal mood - Skin Skin exam: Present: warm Results - Labs CBC & BMP: 05/15/16 17:13 05/15/16 03:48
[2016-05-16 07:09] LABS: Collection Time,Urine 24 HOURS; Total Protein 24 Hr Ur Result 1928 MG/24HR (0-149.1)
[2016-05-16 07:10] LABS: Total Volume,Urine 850 ML (400-2000)
--- NOTE | 2016-05-16 08:03 | Oncology Progress Note ---
Oncology Subjective PN Interval history: I received a report from the [facility] dated May 13, 2016. Arrived in my office yesterday afternoon. It turns out that this patient does have a significant elevation of her kappa free light chains. Her kappa free light chains were reported as 25,260. I find this very hard to believe. She was also noted to have an M spike of 0.3 g/dL which is fairly low. She needs a bone marrow biopsy and aspirate. I am consulting interventional radiology for this. It is a major ordeal to consult interventional radiology using this electronic medical record. I note that on May 15, 2016 the patient's kappa free light chain level was reported as 1172. I am ordering skull, pelvis and spine x-rays and we may need to get an MRI of the thoracic and lumbar spine as well. I have explained all of this to the patient and she is understandably upset. I am actually surprised that she does not have renal failure with her kappa free light chain being that elevated. Exam - Constitutional Vitals: Period Temp Pulse Resp BP Sys/[place] Pulse Ox Last 24 Hr 97.3 F-98.4 F 91-101 16-98 139-170/57-76 94-100 Results - Labs CBC & BMP: 05/15/16 17:13 05/15/16 03:48 Quality Measures - VTE Contraindication to Pharmacological VTE Prophylaxis: Active Bleeding
[2016-05-16] MEDS: INSULIN REGULAR 100 UNIT/ML SUBCUT SCH ×4 (08:37→20:44)
[2016-05-16] MEDS: ASPIRIN EC 81 MG TABLET PO SCH (08:39)
[2016-05-16] MEDS: POLYETHYLENE GLYCOL POWDER 17 GM PACK PO SCH ×2 (08:39→20:44)
[2016-05-16] MEDS: PANTOPRAZOLE 40 MG TABLET PO SCH ×2 (08:40→16:58)
[2016-05-16] MEDS: FERROUS GLUCONATE 324 MG TABLET PO SCH ×2 (08:40→16:58)
[2016-05-16] MEDS: amLODIPine 10 MG TABLET PO SCH (08:41)
[2016-05-16] MEDS: LOSARTAN 50 MG TABLET PO SCH (08:41)
[2016-05-16] MEDS: CETIRIZINE 10 MG TABLET PO SCH (08:41)
[2016-05-16] MEDS: PARoxetine 20 MG TABLET PO SCH (08:41)
--- NOTE | 2016-05-16 11:20 | Pathology Report from [facility] ---
ACCESSION # : [id number] PATIENT NAME : Ritika Adams ORDERING DR : ROSS BLACKWELL MD CLINICAL HX: Anemia - History AVMs POST-OP DX: Gastritis SPECIMEN INFO: Gastric biopsy GROSS DESCRIPTION: The specimen is received in formalin labeled with the patient 's name and consists of two white-orosco tissue fragments measuring 0.3 x 0.5 cm. Submitted in one cassette. DIAGNOSIS FOR RITIKA ADAMS: GASTRIC BIOPSY: Chronic gastritis. H. pylori not seen on special stain. SERVICE DATE: 05/16/2016 REPORT DATE: 05/16/2016 PATHOLOGIST: Isaias Johns M.D. [facility]OSPITALVeronica
--- NOTE | 2016-05-16 12:09 | XRay Report ---
Thoracic spine, 2 views History is myeloma Alignment in the lateral plane is normal throughout the thoracic spine There are mild degenerative changes throughout the thoracic spine without focal vertebral body height loss or focal lytic lesions seen. Impression: Degenerative changes PROCEDURE INTERPRETED AT [facility] DEPARTMENT OF RADIOLOGY Final Report Signed by: Dr. Robyn Banda
--- NOTE | 2016-05-16 12:12 | XRay Report ---
Skull, 2 views History is myeloma No acute skull fracture is seen. There is some minimal patchy lucencies are present many of which are felt to be vasculature. A single focal less than 1 cm lucency just to the right of midline on the AP film and additional lucency centrally on the lateral film are separate findings of uncertain significance. No other persistent more focal lytic lesion is seen Impression: Minimal nonspecific lucent areas described above PROCEDURE INTERPRETED AT [facility] DEPARTMENT OF RADIOLOGY Final Report Signed by: Dr. Robyn Banda
--- NOTE | 2016-05-16 13:09 | XRay Report ---
History is myeloma Lumbar spine, 3 views There is mild grade 1 spinal listhesis of L4 with respect to L3 and L5 There is mild diffuse demineralization with minimal osteophytes present Vascular calcifications present No focal vertebral body height loss is seen There are clips in the right upper quadrant Numerous pelvic phleboliths present Impression: 1. Mild grade 1 spondylolisthesis of L4 2. Minimal degenerative changes PROCEDURE INTERPRETED AT [facility] DEPARTMENT OF RADIOLOGY Final Report Signed by: Dr. Robyn Banda
--- NOTE | 2016-05-16 14:14 | XRay Report ---
Referring Physician: Daryn Baron Exam: XR pelvis AP 1 or 2 Views Date: May 16, 2016 at 10:37 AM Reason: Evaluate for lytic lesion Comparison: Lumbar spine May 16, 2016, abdominal x-rays December 01, 2008 Findings: The joint spaces at both hips are well maintained, but there is minimal marginal spurring at the right femoral head/neck junction. The SI joints are intact. No acute fracture or osseous destructive process is identified. There is a small stable sclerotic density at the right superior pubic ramus, which is likely benign. Extensive arterial calcification is present. Impression: No acute osseous process is identified. PROCEDURE INTERPRETED AT [facility] DEPARTMENT OF RADIOLOGY Final Report Signed by: Dr. Willie Read
--- NOTE | 2016-05-16 14:28 | Hospitalist Progress Note ---
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 Current Visit: Yes (2) Acute posthemorrhagic anemia Status: Acute Assessment and plan: S/P upper endoscopy. Hg stable. Current Visit: Yes Hospitalist: Subjective Interval history: No complaints, no overnight events. Exam - Constitutional Vitals: Period Temp Pulse Resp BP Sys/[place] Pulse Ox Last 24 Hr 98.1 F-98.4 F 93-101 18-20 139-163/63-72 94-100 General appearance: no acute distress - Head Head exam: Present: normocephalic, atraumatic - Eye Eye exam: Present: EOMI Pupils: Present: JOSE - ENT ENT exam: Present: normal exam - Neck Neck exam: Present: normal inspection - Respiratory Respiratory exam: Present: clear to auscultation bilaterally. Absent: rhonchi, wheezes - Cardiovascular Cardiovascular exam: Present: regular rate and rhythm. Absent: gallop, rubs, systolic murmur - GI/Abdominal GI/Abdominal exam: Present: normal bowel sounds, soft. Absent: distended, firm , guarding, tenderness, rebound - Extremities Exam Extremities exam: Present: normal inspection. Absent: calf tenderness, edema Results - Labs CBC & BMP: 05/15/16 17:13 05/15/16 03:48 Lab Results: I have reviewed the past 24 hour labs Quality Measures - VTE Contraindication to Pharmacological VTE Prophylaxis: Active Bleeding
[2016-05-16] MEDS: DOCUSATE SODIUM 100 MG CAPSULE PO PRN (16:54)
[2016-05-16] MEDS: POTASSIUM CHLORIDE 10 MEQ TABLET PO SCH (16:57)
[2016-05-16] MEDS: SIMVASTATIN 40 MG TABLET PO SCH (16:58)
[2016-05-17] MEDS: SODIUM CHLORIDE 0.9% 1,000 ML IV SCH ×3 (04:55→16:54)
[2016-05-17] MEDS: INSULIN REGULAR 100 UNIT/ML SUBCUT SCH ×4 (05:32→20:28)
[2016-05-17 06:28] LABS: Basophils # 0.1 10*3/uL (0.0-0.2); Basophils % 0.6 % (0.0-0.8); Eosinophils # 0.2 10*3/uL (0.0-0.87); Eosinophils % 1.8 % (0.00-10.9); Hematocrit 26.3 VOL% (35.7-47.0); Hemoglobin 8.4 GM/DL (12.0-16.0); Immature Granulocytes Absolute 0.61 #; Lymphocytes # 2.2 10*3/uL (1.4-4.0); Lymphocytes % 25.8 % (21.3-54.2); Mean Corpuscular HGB Conc 31.9 GM/DL (32-36); Mean Corpuscular Hemoglobin 32 PG (27-34); Mean Corpuscular Volume 98.5 FL (87-102); Mean Platelet Volume 9.6 FL (9.6-12.0); Monocytes # 1.1 10*3/uL (0.11-0.8); NRBC # 0.76 10*3/uL; Neutrophils # 4.5 10*3/uL (1.4-7.4); Neutrophils % 51.8 % (38.7-73.9); Platelet Count 85 T/CUMM (130-400); Red Blood Count 2.67 MC/CUMM (3.8-5.5); Red Cell Distribution Width 17.7 % (9.3-17.3); White Blood Count 8.7 T/CUMM (4-12)
[2016-05-17 07:00] LABS: Eosinophils 1 % (0-10); Hypochromasia 1+; Lymphocytes 37 % (20-55); Nucleated Red Blood Cells 8 (0-5); Segmented Neutrophils 55 % (50-85); Total Cells Counted 100
[2016-05-17 07:01] LABS: Microcytosis 1+; Ovalocytes Slight; Tear Drop Cells Slight
[2016-05-17 07:02] LABS: Platelet Estimate Decreased; Polychromasia Slight
[2016-05-17 07:09] LABS: Albumin 3.5 G/DL (3.4-5.0); Bilirubin,Total 0.8 MG/DL (0.2-1.0); Calcium 9.5 MG/DL (8.5-10.1); Osmolality,Calculated 285.8 MOS/KG (273-304); Potassium 3.7 MMOL/L (3.5-5.1); Total Protein 5.7 G/DL (6.4-8.3)
[2016-05-17] MEDS: POLYETHYLENE GLYCOL POWDER 17 GM PACK PO SCH ×2 (09:55→20:28)
[2016-05-17] MEDS: CETIRIZINE 10 MG TABLET PO SCH ×2 (09:55→10:00)
[2016-05-17] MEDS: FERROUS GLUCONATE 324 MG TABLET PO SCH ×2 (09:55→16:53)
[2016-05-17] MEDS: PANTOPRAZOLE 40 MG TABLET PO SCH ×2 (09:56→16:54)
[2016-05-17] MEDS: amLODIPine 10 MG TABLET PO SCH (09:57)
[2016-05-17] MEDS: LOSARTAN 50 MG TABLET PO SCH (09:57)
[2016-05-17] MEDS: ASPIRIN EC 81 MG TABLET PO SCH (09:57)
[2016-05-17] MEDS: PARoxetine 20 MG TABLET PO SCH (09:58)
--- NOTE | 2016-05-17 11:47 | Gastrointestinal Progress Note ---
Assessment and Plan (1) Erosive gastritis with hemorrhage Status: Acute Assessment and plan: This patient is being seen for Dr. Feng while he is off for the weekend. Erosive gastritis discovered on endoscopy done on 05/15/[address] Feng, this appears to be clinically stable, we are waiting hematocrit from today to decide whether or not to discharge patient versus obtaining a tagged red blood cell scan to see if there is another bleeding source. Patient feels fine she is eating well. She does desire a laxative to help her with the constipation she is experiencing from her iron intake. MiraLAX written. I suspect that if her hematocrit is stable she could be discharged soon. 05/17/16--the patient is doing adequately. Her hematocrit has drifted down slightly to 26.3%, I suspect this is likely equilibration but will need to continue to watch this on a daily basis. Patient has been written for a.m. hematocrits for the next 5 days. I see the Dr. Baron has discovered light chains in in this patient bringing up the specter of potential myeloma, his workup is proceeding. The patient is off of her Toradol, thought to be the agent producing the erosive gastritis. She does remain on a baby dose of aspirin each day taken with food. Current Visit: Yes (2) Acute posthemorrhagic anemia Status: Acute Assessment and plan: Awaiting hematocrit from today. Potential discharge today. Suggest a proton pump inhibitor on discharge--> continue Nexium but take this prior to suppertime for best effect. Patient is advised to avoid aspirin and other NSAIDs for at least a month and then take these with food thereafter. Follow- up with Dr. Feng as needed. 05/17/16--continue watch daily hematocrits, these have been drifting down slowly. If she drops below 24% may consider transfusion at that point. Current Visit: Yes (3) Personal history of arterial venous malformation (AVM) Status: Acute Assessment and plan: The patient has a history of Kev's ulcers as well as AVM, these were not seen during upper endoscopy. Current Visit: Yes Gastroenterology - PN: Subj Interval history: The patient is concerned about all the blood is being drawn as this relates to causing her anemia. Her hematocrit is drifted down from 28-->26.3%. She is not experiencing any heavy flow blood per rectum. We did discuss the AVM history and the erosions perhaps caused by Toradol in her stomach and the possible diagnosis of bone marrow dyscrasias with the increase light chains seen by Dr. Baron. Exam (Progress Note) - Constitutional Vitals: Period Temp Pulse Resp BP Sys/Mendosa Pulse Ox Last 24 Hr 97.2 F-98.5 F 92-101 18-22 139-162/66-80 94-98 General appearance: no acute distress - Head Head exam: Present: normocephalic - Eye Eye exam: Present: EOMI - Respiratory Respiratory exam: Present: clear to auscultation bilaterally. Absent: rhonchi, stridor, wheezes - Cardiovascular Cardiovascular exam: Present: regular rate and rhythm - GI/Abdominal GI/Abdominal exam: Present: normal bowel sounds, tenderness (Mild epigastric tenderness), soft. Absent: distended, guarding, rebound - Back Exam Back exam: Present: normal inspection - Neurological Exam Neurological exam: Present: alert, oriented X3 Results - Labs CBC & BMP: 05/17/16 05:31 05/17/16 05:32
--- NOTE | 2016-05-17 12:17 | Hospitalist Progress Note ---
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 Urine collection completed. Current Visit: Yes (2) Acute posthemorrhagic anemia Status: Acute Assessment and plan: S/P upper endoscopy. Hg stable. Current Visit: Yes Hospitalist: Subjective Interval history: No complaints, no overnight events. Exam - Constitutional Vitals: Period Temp Pulse Resp BP Sys/Mendosa Pulse Ox Last 24 Hr 97.2 F-98.5 F 93-101 18-22 139-162/67-80 94-98 General appearance: no acute distress - Head Head exam: Present: normocephalic, atraumatic - Eye Eye exam: Present: EOMI Pupils: Present: OJSE - ENT ENT exam: Present: normal exam - Neck Neck exam: Present: normal inspection - Respiratory Respiratory exam: Present: clear to auscultation bilaterally. Absent: rhonchi, wheezes - Cardiovascular Cardiovascular exam: Present: regular rate and rhythm. Absent: gallop, rubs, systolic murmur - GI/Abdominal GI/Abdominal exam: Present: normal bowel sounds, soft. Absent: distended, firm , guarding, tenderness, rebound - Extremities Exam Extremities exam: Present: normal inspection. Absent: calf tenderness, edema Results - Labs CBC & BMP: 05/17/16 05:31 05/17/16 05:32 Lab Results: I have reviewed the past 24 hour labs Quality Measures - VTE Contraindication to Pharmacological VTE Prophylaxis: Active Bleeding
[2016-05-17] MEDS: MAGNESIUM HYDROXIDE SUSP 30 ML UDCUP PO PRN (14:05)
[2016-05-17] MEDS: POTASSIUM CHLORIDE 10 MEQ TABLET PO SCH (16:52)
[2016-05-17] MEDS: SIMVASTATIN 40 MG TABLET PO SCH (16:54)
[2016-05-18] MEDS: SODIUM CHLORIDE 0.9% 1,000 ML IV SCH ×3 (03:36→17:16)
[2016-05-18 06:42] LABS: Basophils # 0.1 10*3/uL (0.0-0.2); Basophils % 0.5 % (0.0-0.8); Eosinophils # 0.1 10*3/uL (0.0-0.87); Eosinophils % 1.4 % (0.00-10.9); Hematocrit 27.9 VOL% (35.7-47.0); Immature Granulocytes % 7.4 %; Immature Granulocytes Absolute 0.69 #; Lymphocytes # 1.9 10*3/uL (1.4-4.0); Lymphocytes % 20.3 % (21.3-54.2); Mean Corpuscular HGB Conc 32.3 GM/DL (32-36); Mean Corpuscular Hemoglobin 32 PG (27-34); Mean Corpuscular Volume 98.2 FL (87-102); Monocytes # 1.7 10*3/uL (0.11-0.8); Monocytes % 18.2 % (1.7-12.7); Neutrophils # 4.9 10*3/uL (1.4-7.4); Neutrophils % 52.2 % (38.7-73.9); Red Blood Count 2.84 MC/CUMM (3.8-5.5); Red Cell Distribution Width 16.9 % (9.3-17.3); White Blood Count 9.3 T/CUMM (4-12)
[2016-05-18 06:51] LABS: Platelet Count 87 T/CUMM (130-400)
[2016-05-18] MEDS: INSULIN REGULAR 100 UNIT/ML SUBCUT SCH ×4 (06:54→21:34)
[2016-05-18 07:04] LABS: Band Neutrophils 4 % (0-10); Elliptocytes Few; Hypochromasia 1+; Lymphocytes 27 % (20-55); Nucleated Red Blood Cells 11 (0-5); Platelet Estimate Decreased; Segmented Neutrophils 61 % (50-85); Total Cells Counted 100
[2016-05-18 07:05] LABS: Microcytosis 1+
[2016-05-18 07:26] LABS: Calcium 10.1 MG/DL (8.5-10.1); Osmolality,Calculated 287.7 MOS/KG (273-304); Potassium 3.7 MMOL/L (3.5-5.1)
[2016-05-18] MEDS: LOSARTAN 50 MG TABLET PO SCH (08:07)
[2016-05-18] MEDS: MAGNESIUM HYDROXIDE SUSP 30 ML UDCUP PO PRN (08:07)
[2016-05-18] MEDS: PANTOPRAZOLE 40 MG TABLET PO SCH ×2 (08:07→17:16)
[2016-05-18] MEDS: POLYETHYLENE GLYCOL POWDER 17 GM PACK PO SCH ×2 (08:07→20:45)
[2016-05-18] MEDS: DOCUSATE SODIUM 100 MG CAPSULE PO PRN (08:07)
[2016-05-18] MEDS: ASPIRIN EC 81 MG TABLET PO SCH (08:07)
[2016-05-18] MEDS: CETIRIZINE 10 MG TABLET PO SCH (08:08)
[2016-05-18] MEDS: PARoxetine 20 MG TABLET PO SCH (08:08)
[2016-05-18] MEDS: amLODIPine 10 MG TABLET PO SCH (08:08)
[2016-05-18] MEDS: FERROUS GLUCONATE 324 MG TABLET PO SCH ×2 (09:58→17:17)
[2016-05-18] MEDS ORDERED: MAGNESIUM CITRATE 300 ML BOTTLE PO ONE (10:02)
--- NOTE | 2016-05-18 11:05 | Gastrointestinal Progress Note ---
Assessment and Plan (1) Erosive gastritis with hemorrhage Status: Acute Assessment and plan: This patient is being seen for Dr. Feng while he is off for the weekend. Erosive gastritis discovered on endoscopy done on 05/15/[address] Feng, this appears to be clinically stable, we are waiting hematocrit from today to decide whether or not to discharge patient versus obtaining a tagged red blood cell scan to see if there is another bleeding source. Patient feels fine she is eating well. She does desire a laxative to help her with the constipation she is experiencing from her iron intake. MiraLAX written. I suspect that if her hematocrit is stable she could be discharged soon. 05/17/16--the patient is doing adequately. Her hematocrit has drifted down slightly to 26.3%, I suspect this is likely equilibration but will need to continue to watch this on a daily basis. Patient has been written for a.m. hematocrits for the next 5 days. I see the Dr. Baron has discovered light chains in in this patient bringing up the specter of potential myeloma, his workup is proceeding. The patient is off of her Toradol, thought to be the agent producing the erosive gastritis. She does remain on a baby dose of aspirin each day taken with food. 05/18/16--Patient feels that she is fairly constipated by the iron she is getting. Her hematocrit is stable. Hematocrit is up to 27.9% she can likely be discharged at this time, at least from a GI standpoint. Dr. Feng will return again tomorrow. Current Visit: Yes (2) Acute posthemorrhagic anemia Status: Acute Assessment and plan: Awaiting hematocrit from today. Potential discharge today. Suggest a proton pump inhibitor on discharge--> continue Nexium but take this prior to suppertime for best effect. Patient is advised to avoid aspirin and other NSAIDs for at least a month and then take these with food thereafter. Follow- up with Dr. Feng as needed. 05/17/16--continue watch daily hematocrits, these have been drifting down slowly. If she drops below 24% may consider transfusion at that point. 05/18/16--As noted above, patient is stable from a GI standpoint. Her hematocrit is 27% today, almost 28%. The patient is stable for discharge again from a GI standpoint. I believe she is undergoing a hematologic workup as well. Current Visit: Yes (3) Personal history of arterial venous malformation (AVM) Status: Acute Assessment and plan: The patient has a history of Kev's ulcers as well as AVM, these were not seen during upper endoscopy. 05/18/16--These were not seen during upper endoscopy as mentioned above. Current Visit: Yes Gastroenterology - PN: Subj Interval history: No complaints. Still needs a bowel movement, will write for enema today. Exam (Progress Note) - Constitutional Vitals: Period Temp Pulse Resp BP Sys/Mendosa Pulse Ox Last 24 Hr 97.6 F-98.5 F 94-102 16-20 146-167/58-72 93-97 General appearance: no acute distress - Eye Eye exam: Present: EOMI Pupils: Present: JOSE - Respiratory Respiratory exam: Present: clear to auscultation bilaterally. Absent: rhonchi, stridor, wheezes - GI/Abdominal GI/Abdominal exam: Present: normal bowel sounds, soft. Absent: distended, guarding, tenderness, rebound - Extremities Exam Extremities exam: Present: normal inspection - Neurological Exam Neurological exam: Present: alert, oriented X3, CN II-XII intact. Absent: motor sensory deficit - Psychiatric Psychiatric exam: Present: normal affect, normal mood - Skin Skin exam: Present: warm Results - Labs CBC & BMP: 05/18/16 06:05 05/18/16 06:05
--- NOTE | 2016-05-18 11:18 | Hospitalist Progress Note ---
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 Urine collection completed. Current Visit: Yes (2) Acute posthemorrhagic anemia Status: Acute Assessment and plan: S/P upper endoscopy. Hg stable. Current Visit: Yes Hospitalist: Subjective Interval history: No complaints, no overnight events. Exam - Constitutional Vitals: Period Temp Pulse Resp BP Sys/[place]end[place] Pulse Ox Last 24 Hr 97.6 F-98.5 F 94-102 16-20 146-167/58-72 93-97 General appearance: no acute distress - Head Head exam: Present: normocephalic, atraumatic - Eye Eye exam: Present: EOMI Pupils: Present: JOSE - ENT ENT exam: Present: normal exam - Neck Neck exam: Present: normal inspection - Respiratory Respiratory exam: Present: clear to auscultation bilaterally. Absent: rhonchi, wheezes - Cardiovascular Cardiovascular exam: Present: regular rate and rhythm. Absent: gallop, rubs, systolic murmur - GI/Abdominal GI/Abdominal exam: Present: normal bowel sounds, soft. Absent: distended, firm , guarding, tenderness, rebound - Extremities Exam Extremities exam: Present: normal inspection. Absent: calf tenderness, edema Results - Labs CBC & BMP: 05/18/16 06:05 05/18/16 06:05 Lab Results: I have reviewed the past 24 hour labs Quality Measures - VTE Contraindication to Pharmacological VTE Prophylaxis: Active Bleeding
[2016-05-18] MEDS: POTASSIUM CHLORIDE 10 MEQ TABLET PO SCH (17:17)
[2016-05-18] MEDS: SIMVASTATIN 40 MG TABLET PO SCH (17:18)
[2016-05-18] MEDS: FLUTICASONE 50 MCG NASAL SPRAY 16 GM BOTTLE BOTH NARES SCH (20:45)
[2016-05-19] MEDS: SODIUM CHLORIDE 0.9% 1,000 ML IV SCH ×2 (03:09→10:59)
[2016-05-19 06:07] LABS: Basophils # 0.1 10*3/uL (0.0-0.2); Basophils % 0.6 % (0.0-0.8); Eosinophils # 0.2 10*3/uL (0.0-0.87); Eosinophils % 1.7 % (0.00-10.9); Hematocrit 27.5 VOL% (35.7-47.0); Hemoglobin 8.9 GM/DL (12.0-16.0); Immature Granulocytes Absolute 0.88 #; Lymphocytes # 2.1 10*3/uL (1.4-4.0); Lymphocytes % 21.8 % (21.3-54.2); Mean Corpuscular HGB Conc 32.4 GM/DL (32-36); Mean Corpuscular Hemoglobin 32 PG (27-34); Mean Corpuscular Volume 98.6 FL (87-102); Mean Platelet Volume 10.4 FL (9.6-12.0); Monocytes # 1.9 10*3/uL (0.11-0.8); Monocytes % 19.1 % (1.7-12.7); NRBC # 0.79 10*3/uL; Neutrophils # 4.7 10*3/uL (1.4-7.4); Neutrophils % 47.8 % (38.7-73.9); Platelet Count 89 T/CUMM (130-400); Red Blood Count 2.79 MC/CUMM (3.8-5.5); Red Cell Distribution Width 16.4 % (9.3-17.3); White Blood Count 9.8 T/CUMM (4-12)
[2016-05-19 06:16] LABS: PT Patient Result 10.8 SECS
[2016-05-19 06:37] LABS: Band Neutrophils 4 % (0-10); Eosinophils 4 % (0-10); Lymphocytes 26 % (20-55); Metamyelocytes 1 %; Myelocytes 1 %; Nucleated Red Blood Cells 14 (0-5); Segmented Neutrophils 52 % (50-85); Total Cells Counted 100
[2016-05-19 06:39] LABS: Platelet Estimate Decreased; Polychromasia Slight
[2016-05-19 06:41] LABS: Microcytosis 1+; Tear Drop Cells Slight
[2016-05-19 06:42] LABS: Atypical Lymphocytes Few; Hypochromasia 1+; Ovalocytes Slight
[2016-05-19 06:43] LABS: Calcium 9.9 MG/DL (8.5-10.1); Osmolality,Calculated 288.7 MOS/KG (273-304); Potassium 3.9 MMOL/L (3.5-5.1)
--- NOTE | 2016-05-19 07:29 | Oncology Progress Note ---
Oncology Subjective PN Interval history: This patient has anemia and significantly elevated kappa free light chains. Interventional radiology has been consulted for a marrow biopsy. It is my understanding that the marrow biopsy is going to be done today. Although this may be myeloma, it surprises me that her serum creatinine has not been markedly elevated as result of her kappa free light chain level which was reported to be 1172 during this hospital stay. I am ordering an echocardiogram today to assess myocardial function since this could also be amyloidosis. Lab work today includes white cell count of 9800 with a hemoglobin of 8.9 and a platelet count of 89,000. Her serum creatinine is mildly elevated at 1.2 today. It had been normal on May 17 and May 18. Exam - Constitutional Vitals: Period Temp Pulse Resp BP Sys/Mend[place] Pulse Ox Last 24 Hr 97.1 F-98.5 F 86-99 16-20 111-165/60-78 95-98 Results - Labs CBC & BMP: 05/19/16 05:15 05/19/16 05:15 Quality Measures - VTE Contraindication to Pharmacological VTE Prophylaxis: Active Bleeding
[2016-05-19 08:16] LABS: Albumin (UPE) 152.3 MG/24H; Albumin (UPE) Rel % 7.9 %; Alpha 1 (UPE) 69.4 MG/24H; Alpha 1 (UPE) Rel % 3.6 %; Alpha 2 (UPE) 75.2 MG/24H; Alpha 2 (UPE) Rel % 3.9 %; Beta (UPE) 121.5 MG/24H; Beta (UPE) Rel % 6.3 %; Gamma (UPE) 1509.6 MG/24H
[2016-05-19 08:17] LABS: Gamma (UPE) Rel % 78.3 %
[2016-05-19] MEDS: INSULIN REGULAR 100 UNIT/ML SUBCUT SCH ×2 (09:19→10:59)
[2016-05-19] MEDS: FERROUS GLUCONATE 324 MG TABLET PO SCH (09:20)
[2016-05-19] MEDS: PANTOPRAZOLE 40 MG TABLET PO SCH (09:21)
[2016-05-19] MEDS: ASPIRIN EC 81 MG TABLET PO SCH (09:21)
[2016-05-19] MEDS: CETIRIZINE 10 MG TABLET PO SCH (09:22)
[2016-05-19] MEDS: POLYETHYLENE GLYCOL POWDER 17 GM PACK PO SCH (09:22)
[2016-05-19] MEDS: PARoxetine 20 MG TABLET PO SCH (09:22)
[2016-05-19] MEDS: FLUTICASONE 50 MCG NASAL SPRAY 16 GM BOTTLE BOTH NARES SCH (09:22)
[2016-05-19] MEDS: LOSARTAN 50 MG TABLET PO SCH (09:22)
[2016-05-19] MEDS: amLODIPine 10 MG TABLET PO SCH (09:22)
--- NOTE | 2016-05-19 09:27 | Gastrointestinal Progress Note ---
<LilybcGrace Veronica - Last Filed: 05/19/16 09:24> Assessment and Plan (1) Symptomatic anemia Status: Acute Assessment and plan: 05/19-Hgb stable at 8.9, no overt bleeding. Hematology workup continues. Bone marrow biopsy today. Plan and addendum to follow by Dr Feng. 05/14-Onset of weakness, fatigue with hx of AVMs, mil erosions. Recent EGD and colonoscopy. Hgb 7.5. No overt bleeding at present time. Stool for occult blood. Monitor serial HH. Transfuse as necessary. Plan and addendum to follow by DR Feng. Current Visit: No Gastroenterology - PN: Subj Interval history: CC: Erosive gastritis, anemia Pt is seen awake and alert sitting on side of bed with family at side. States she is feeling well today. She denies any abdominal pain, nausea or vomiting. Tolerating her diet well. Her hematology workup continues at present time. She is having an echocardiogram today to assess for myocardial function. She is also for a bone marrow biopsy today. Hemoglobin stable at 8.9. Abdomen is soft, nontender. ROS: Denies SOB or chest pain Exam (Progress Note) - Constitutional Vitals: Period Temp Pulse Resp BP Sys/Mendosa Pulse Ox Last 24 Hr 97.1 F-98.5 F 86-99 16-20 111-165/60-78 95-98 General appearance: normal weight, no acute distress - Head Head exam: Present: normal inspection, normocephalic - Eye Eye exam: Present: other (lids and conjunctiva unremarkable). Absent: scleral icterus - ENT ENT exam: Present: normal exam, normal oropharynx - Neck Neck exam: Present: normal inspection - Respiratory Respiratory exam: Present: clear to auscultation bilaterally. Absent: rales, rhonchi, wheezes - Cardiovascular Cardiovascular exam: Present: regular rate and rhythm. Absent: diastolic murmur , JVD, systolic murmur - GI/Abdominal GI/Abdominal exam: Present: normal bowel sounds, soft. Absent: ascites, distended, mass, organomegaly, tenderness - Extremities Exam Extremities exam: Present: normal inspection, full ROM - Back Exam Back exam: Present: normal inspection - Neurological Exam Neurological exam: Present: alert, oriented X3 - Psychiatric Psychiatric exam: Present: normal affect, normal mood - Skin Skin exam: Present: normal color, warm, dry Results - Labs CBC & BMP: 05/19/16 05:15 05/19/16 05:15 Lab Results: I have reviewed the past 24 hour labs <Linden Feng - Last Filed: 05/19/16 13:08> Exam (Progress Note) - Constitutional Vitals: Period Temp Pulse Resp BP Sys/Mendosa Pulse Ox Last 24 Hr 97.1 F-98.4 F 86-99 16-22 111-188/60-78 95-100 Results - Labs CBC & BMP: 05/19/16 05:15 05/19/16 05:15
[2016-05-19] MEDS ORDERED: SODIUM CHLORIDE 0.45% 1,000 ML IV SCH (09:30)
[2016-05-19] MEDS ORDERED: DIAZEPAM 5 MG TABLET PO ONE (09:59)
[2016-05-19] MEDS ORDERED: HEPARIN 5,000 UNIT/1 ML VIAL ONE (11:34)
--- NOTE | 2016-05-19 13:20 | Hospitalist Progress Note ---
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 Urine collection completed. Current Visit: Yes (2) Acute posthemorrhagic anemia Status: Acute Assessment and plan: S/P upper endoscopy. Hg stable. Current Visit: Yes Hospitalist: Subjective Interval history: No complaints, no overnight events. Exam - Constitutional Vitals: Period Temp Pulse Resp BP Sys/Mend[place] Pulse Ox Last 24 Hr 97.1 F-98.4 F 86-99 16-22 111-188/60-78 95-100 General appearance: no acute distress - Head Head exam: Present: normocephalic, atraumatic - Eye Eye exam: Present: EOMI Pupils: Present: JOSE - ENT ENT exam: Present: normal exam - Neck Neck exam: Present: normal inspection - Respiratory Respiratory exam: Present: clear to auscultation bilaterally. Absent: rhonchi, wheezes - Cardiovascular Cardiovascular exam: Present: regular rate and rhythm. Absent: gallop, rubs, systolic murmur - GI/Abdominal GI/Abdominal exam: Present: normal bowel sounds, soft. Absent: distended, firm , guarding, tenderness, rebound - Extremities Exam Extremities exam: Present: normal inspection. Absent: calf tenderness, edema Results - Labs CBC & BMP: 05/19/16 05:15 05/19/16 05:15 Lab Results: I have reviewed the past 24 hour labs Quality Measures - VTE Contraindication to Pharmacological VTE Prophylaxis: Active Bleeding
--- NOTE | 2016-05-19 15:12 | Post Interventional Procedure ---
Pre-op diagnosis: elevated gamma globulins Post-op diagnosis: same Procedure: bone marrow aspiration and biopsy Contrast: none Flouroscopy: 1.2 min Radiologist: Los Purcell Anesthesia: local Specimens: other (aspirate and biopsy right iliac crest) Estimated blood loss: minimal (3 mL) Complications: none Condition: stable Description/Findings: Left iliac crest targeted from a posterior approach for bone marrow aspiration and biopsy without difficulty. Samples were obtained and needle was removed. Patient tolerated the procedure well and left the procedure area in stable condition. Assessment and Plan - Time spent with patient Time spent with patient: Less than 30 minutes
--- NOTE | 2016-05-19 15:15 | Interventional Radiology Rpt ---
IR Bone Marrow Biopsy Clinical Information: 75-year-old female with elevated gammaglobulins. Bone marrow biopsy is requested for further analysis Physician[s]: Dr. Purcell Procedure: The patient was advised of the benefits, risks, and alternatives of the procedure and informed consent was obtained. A time out was performed with verification of the patient's name, MRN, site of procedure, and type of procedure to be performed. The patient was positioned in the prone position on the angiographic table. The anticipated puncture site was prepped and draped in the usual sterile fashion. A retouching operator radiograph reveals no relevant abnormality. Local anesthesia was used for the procedure. The right posterior superior iliac crest was accessed with the needle. 12 mL of marrow aspirate was obtained and mixed with heparin. The needle was repositioned to a separate access site and a 1 cm marrow core was obtained. All samples were submitted for pathologic analysis. The patient tolerated the procedure well and was returned to the post procedure monitoring area in stable condition. EBL: < 5 mL. Complications: None. Total fluoroscopy time: 1.2 minutes Total number of images for the study: 31 Conclusion: Technically successful bone marrow aspiration and biopsy. PROCEDURE INTERPRETED AT [facility] DEPARTMENT OF RADIOLOGY Final Report Signed by: Los Purcell
--- NOTE | 2016-05-19 15:26 | ECHO Report ---
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 Grade I/IV diastolic dysfunction (abnormal relaxation filling pattern), normal to mildly elevated filling pressures. The right ventricle is normal in size and function. The right atrium is mildly enlarged. The left atrium is mildly enlarged. Mild mitral annular and leaflet calcification with mild mitral regurgitation. Aortic valve sclerosis. Mild aortic valve regurgitation. Morphologically normal tricuspid valve. Moderate tricuspid valve regurgitation. [id number] mmHG. Pulmonic valve not well visualized. Normal pericardium without effusion. Normal ascending aorta dimension. MEASUREMENTS (Male / Female) Normal Values 2D ECHO LV Diastolic Diameter PLAX 3.7 cm 4.2 - 5.9 / 3.9 - 5.3 cm LV Systolic Diameter PLAX 1.6 cm LV Fractional Shortening PLAX 57.4 % IVS Diastolic Thickness 0.9 cm 0.6 - 1.0 / 0.6 - 0.9 cm LVPW Diastolic Thickness 1.0 cm 0.6 - 1.0 / 0.6 - 0.9 cm RV Internal Dim ED PLAX 2.7 cm Aortic Root Diameter 2.8 cm LA Systolic Diameter LX 3.5 cm 3.0 - 4.0 / 2.7 - 3.8 cm DOPPLER TR Peak Velocity 294.0 cm/s TR Peak Gradient 34.6 mmHg FINDINGS Left Ventricle Normal left ventricular cavity size. Normal left ventricular wall thickness. Left ventricular ejection fraction is estimated at 65%. Grade I/IV diastolic dysfunction (abnormal relaxation filling pattern), normal to mildly elevated filling pressures. Right Ventricle The right ventricle is normal in size and function. Right Atrium The right atrium is mildly enlarged. Left Atrium The left atrium is mildly enlarged. Mitral Valve Mild mitral annular and leaflet calcification with mild mitral regurgitation. Aortic Valve Aortic valve sclerosis. Mild aortic valve regurgitation. Tricuspid Valve Morphologically normal tricuspid valve. Moderate tricuspid valve regurgitation. NIT13-85 mmHG. Pulmonic Valve Pulmonic valve not well visualized. Pericardium Normal pericardium without effusion. Aorta Normal ascending aorta dimension. Bridger Plavac (Electronically Signed) Final Date: 19 May 2016 15:24
[2016-05-19 16:48] VITALS: BP 152/71
--- NOTE | 2016-05-19 16:53 | Discharge Summary ---
Hospital Course - Hospital Course Hospital Course: Ms Adams was admitted for evaluation of anemia as a direct admission from internal medicine. Patient's hemoglobin level was 7.5 on admission and dropped to 6.4 after fluids. She was seen in consultation by gastroenterology and had an upper endoscopy which revealed erosive gastritis. She received 2 units of packed red blood cells with adequate response and by discharge remains stable at about 9. She was seen in consultation by oncology. Patient had kappa light chains drawn which were elevated. 24-hour urine was obtained and also revealed elevated kappa light chains. Patient had x-rays of her skull pelvis and spine which revealed possible lucency lesions in her skull. Patient had a bone marrow biopsy with results pending at discharge. By discharge patient met maximum benefit of hospitalization should follow-up with oncology for results of bone marrow biopsy. 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 (2) Acute posthemorrhagic anemia Status: Acute Specialty Discharge - Follow Up or Referrals Follow up with: Daryn Baron MD [Physician] - 06/03/16 1:00 pm (bring all meds in the original bottle,picture ID, INS CARD) Discharge Plan - Discharge Data Disposition: Disch To Home/Self Care Condition at Discharge: Stable Discharge Diet: advance to your usual diet Activity: resume usual activities as tolerated - Discharge Medications Continue metFORMIN [Glucophage] 500 mg PO BID W/MEALS Aspirin [Ecotrin] 81 mg PO DAILY amLODIPine [Norvasc] 10 mg PO DAILY Potassium Chloride 20 meq PO BEDTIME PARoxetine [Paxil] 20 mg PO DAILY Simvastatin [Zocor] 40 mg PO BEDTIME Cetirizine Tab [ZyrTEC Tab] 10 mg PO DAILY Losartan [Cozaar] 100 mg PO DAILY Docusate Sodium Cap [Colace Cap] 100 mg PO BEDTIME PRN PRN Reason: Constipation Cholecalciferol (Vitamin D3) [Vitamin D3] 1,000 unit PO DAILY Ascorbic Acid Tab [Vitamin C Tab] 1,000 mg PO BID HydrOXYzine PAMOATE CAP [Vistaril Cap] 25 mg PO Q8H PRN PRN Reason: Itching Esomeprazole Magnesium [Nexium] 40 mg PO BID 30 Days Ferrous Gluconate 324 mg PO BID #0 Fluticasone Propionate [Fluticasone 50 mcg Nasal [place]] 1 spray BOTH NARES DAILY PRN #1 actuation PRN Reason: Nasal Congestion Discontinued Spironolactone [Aldactone] 25 mg PO DAILY PRN PRN Reason: Edema Ketorolac Tab [Toradol Tab] 10 mg PO Q6H PRN PRN Reason: Pain - Follow Up or Referral Follow Up: Daryn Baron MD [Physician] - 06/03/16 1:00 pm (bring all meds in the original bottle,picture ID, INS CARD) - Forms/Instructions Instructions: Gastritis (DC), Osteoarthritis (DC), Leukocytosis (DC), Hypercalcemia (DC) Exam - Constitutional Vitals: Period Temp Pulse Resp BP Sys/Mendosa Pulse Ox Last 24 Hr 97.1 F-98.7 F 70-99 16-22 111-188/60-78 95-100 General appearance: normal weight, no acute distress - Head Head exam: Present: normal inspection, normocephalic, atraumatic - Eye Eye exam: Present: EOMI Pupils: Present: JOSE - ENT ENT exam: Present: normal exam - Neck Neck exam: Present: normal inspection - Respiratory Respiratory exam: Present: clear to auscultation bilaterally - Cardiovascular Cardiovascular exam: Present: regular rate and rhythm. Absent: bradycardia, irregular rhythm, systolic murmur - GI/Abdominal GI/Abdominal exam: Present: normal bowel sounds. Absent: ascites, distended, hypoactive bowel sounds, tenderness - Extremities Exam Extremities exam: Present: normal inspection Discharge Results Procedures and tests throughout hospitalization: Pending Orders 05/14/16 15:34 Occult Blood, Stool Routine 05/15/16 11:01 Free Mackey/Lambda, Urine MCKINNEY Routine 05/20/16 04:00 Comp Blood Count Auto Diff IN AM 05/21/16 04:00 Comp Blood Count Auto Diff IN AM 05/22/16 04:00 Comp Blood Count Auto Diff IN AM Labs on day of discharge: Labs from last 24 hours 05/19/16 05/19/16 05/19/16 10:43 07:38 05:15 WBC RBC Hgb Hct MCV MCH MCHC RDW Plt Count MPV Neut % (Auto) Lymph % (Auto) Sterling % (Auto) Eos % (Auto) Baso % (Auto) Neut # (Auto) Lymph # (Auto) Sterling # (Auto) Eos # (Auto) Baso # (Auto) Total Counted Immature Gran % Nucleated RBC % Immature Gran # Segmented Neutrophils Band Neutrophils Lymphocytes Monocytes Eosinophils Basophils Metamyelocytes Myelocytes Nucleated RBCs Nucleated RBCs # Atypical Lymphocytes Platelet Estimate Polychromasia Hypochromasia Microcytosis Tear Drop Cells Ovalocytes INR 1.0 PT Patient/Control Mix 10.8 Sodium Potassium Chloride Carbon Dioxide Anion Gap BUN Creatinine GFR Calculation BUN/Creatinine Ratio Glucose POC Glucose 213 H 104 Calculated Osmolality Calcium Ur Albumin 24 Hour Ur Total Protein 24 Hr U Xlaxs-8-Kshqkmck U Mvgtm-8-Tcivhhhz (%) U Gnrvf-8-Qzazqnau U Fuehl-9-Rotucamn (%) U Beta Globulin U Beta Globulin (%) U Gamma Globulin U Gamma Globulin (%) Urine PEP Interpret Pro Electrophoresis Int Serum Total Protein PEP Albumin (PEP) Albumin (relative) Qyvnu-8-Glcfgnng Zqdiq-3-Skvziwpn rel Dkhtk-2-Xbidniur Pugsu-8-Garryncs rel Inda-4-Zbugnjvk Tyqa-7-Mxrxtbnl rel Gamma Globulins Gamma Globulins rel 05/19/16 05/19/16 05/18/16 05:15 05:15 20:51 WBC 9.8 RBC 2.79 L Hgb 8.9 L Hct 27.5 L MCV 98.6 MCH 32 MCHC 32.4 RDW 16.4 Plt Count 89 L MPV 10.4 Neut % (Auto) 47.8 Lymph % (Auto) 21.8 Sterling % (Auto) 19.1 H Eos % (Auto) 1.7 Baso % (Auto) 0.6 Neut # (Auto) 4.7 Lymph # (Auto) 2.1 Sterling # (Auto) 1.9 H Eos # (Auto) 0.2 Baso # (Auto) 0.1 Total Counted 100 Immature Gran % 9.0 Nucleated RBC % 8.1 Immature Gran # 0.88 Segmented Neutrophils 52 Band Neutrophils 4 Lymphocytes 26 Monocytes 10 Eosinophils 4 Basophils 2.0 H Metamyelocytes 1 Myelocytes 1 Nucleated RBCs 14 H Nucleated RBCs # 0.79 Atypical Lymphocytes Few Platelet Estimate Decreased Polychromasia Slight Hypochromasia 1+ Microcytosis 1+ Tear Drop Cells Slight Ovalocytes Slight INR PT Patient/Control Mix Sodium 145 Potassium 3.9 Chloride 110 H Carbon Dioxide 26 Anion Gap 12.9 BUN 15 Creatinine 1.20 H GFR Calculation 50 BUN/Creatinine Ratio 12.00 Glucose 96 POC Glucose 228 H Calculated Osmolality 288.7 Calcium 9.9 Ur Albumin 24 Hour Ur Total Protein 24 Hr U Anavf-0-Wwxzoyah U Pzhuj-5-Hqqcsxun (%) U Eclmo-0-Nzbulnfk U Xexti-2-Tjnpmqyz (%) U Beta Globulin U Beta Globulin (%) U Gamma Globulin U Gamma Globulin (%) Urine PEP Interpret Pro Electrophoresis Int Serum Total Protein PEP Albumin (PEP) Albumin (relative) Nvmui-7-Kotclizl Llwbp-7-Miiewhqi rel Imxum-2-Tcxvarhq Gicih-1-Ndojnaro rel Bdvr-5-Ramrxnxn Tigb-6-Fhlcpfem rel Gamma Globulins Gamma Globulins rel 05/14/16 Unknown WBC RBC Hgb Hct MCV MCH MCHC RDW Plt Count MPV Neut % (Auto) Lymph % (Auto) Sterling % (Auto) Eos % (Auto) Baso % (Auto) Neut # (Auto) Lymph # (Auto) Sterling # (Auto) Eos # (Auto) Baso # (Auto) Total Counted Immature Gran % Nucleated RBC % Immature Gran # Segmented Neutrophils Band Neutrophils Lymphocytes Monocytes Eosinophils Basophils Metamyelocytes Myelocytes Nucleated RBCs Nucleated RBCs # Atypical Lymphocytes Platelet Estimate Polychromasia Hypochromasia Microcytosis Tear Drop Cells Ovalocytes INR PT Patient/Control Mix Sodium Potassium Chloride Carbon Dioxide Anion Gap BUN Creatinine GFR Calculation BUN/Creatinine Ratio Glucose POC Glucose Calculated Osmolality Calcium Ur Albumin 24 Hour 7.9 Ur Total Protein 24 Hr 1928 H U Qgjlk-8-Nbsfshrk 69.4 U Ozahz-7-Aefaqoik (%) 3.6 U Mmuoi-3-Scruodsb 75.2 U Nbsgm-1-Hwtjxzdy (%) 3.9 U Beta Globulin 121.5 U Beta Globulin (%) 6.3 U Gamma Globulin 1509.6 U Gamma Globulin (%) 78.3 Urine PEP Interpret Pro Electrophoresis Int Serum Total Protein PEP 6.0 L Albumin (PEP) 4.1 Albumin (relative) 67.6 Vkiqy-5-Swixfsyv 0.2 Lwalb-1-Ggiwnhuf rel 3.9 Cnxod-8-Wwlmqwmj 0.8 Hjakc-0-Olzlskzl rel 12.6 Clcg-7-Hvdynxfr 0.6 Esql-0-Toszozkp rel 10.7 Gamma Globulins 0.3 L Gamma Globulins rel 5.2 DS: Provider Date of admission: 05/14/16 11:37 Primary care physician: Ginna Boateng NP Attending physician on admission: Mena Ramos MD Consults: 05/14/16 14:34 Consult to Physician [CONS] Routine Comment: Consulting Provider: Daryn Baron Person Notified: yann Date Notified: 05/14/16 Time Notified: 14:45 05/15/16 10:25 Consult to Physician [CONS] Routine Comment: Consulting Provider: Linden Feng Person Notified: MD elmore Date Notified: 05/15/16 Time Notified: 10:25 05/16/16 07:58 Consult to Physician [CONS] Routine Comment: marrow biopsy and aspirate Consulting Provider: Los Purcell Consulting Provider Notified: No When should Consulting Provider be notified: Now Person Notified: Kristine Date Notified: 05/16/16 Time Notified: 10:30 Consult Notification Comment: Kristine stated is not there today... but will be back on Thursday Discharging clinician: Farzaneh Peña MD Expected date of discharge: 05/19/16
--- NOTE | 2016-05-20 06:52 | Oncology Progress Note ---
Oncology Subjective PN Interval history: I ordered a blood test for paroxysmal nocturnal hemoglobinuria. This test is not listed under laboratory tests. I pointed out to the head nurse on 5 E. that I was ordering this test. The results are pending so far and these need to be followed up on. Exam - Constitutional Vitals: Period Temp Pulse Resp BP Sys/Mendosa Pulse Ox Last 24 Hr 97.4 F-98.7 F 70-96 18-22 149-188/71-78 96-100 Results - Labs CBC & BMP: 05/19/16 05:15 05/19/16 05:15 Quality Measures - VTE Contraindication to Pharmacological VTE Prophylaxis: Active Bleeding Specialty Discharge - Follow Up or Referrals Follow up with: Daryn Baron MD [Physician] - 06/03/16 1:00 pm (bring all meds in the original bottle,picture ID, INS CARD)
--- NOTE | 2016-06-11 07:34 | Physician Query Form ---
CLICK EDIT DOCUMENT TO SELECT QUERY ANSWER --> OK --> SIGN Tiffani Sharma RN, CCDS Certified Clinical Monkey Trainer W) [phone] (f) [phone] [email or web address]: Make your selection(s) from the choices in EACH section by typing an "x" and enter comments in the comment section. Please use your independent medical judgment in providing your response. This request does not imply that any particular answer is desired or expected. 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 (see assessment)" (Path report returned post discharge summary) Abnormal Pathology findings are not reported unless an authorized provider indicates their clinical significance Please select the best choice: ( x) I agree with the Pathology findings ( ) I disagree with the Pathology findings ( ) No clinical significance ( ) Other/clarification of findings, please specify: ( ) Clinically unable to determine COMMENTS: Use of terms such as suspected, likely, or probable (associated with a specific diagnosis that is being evaluated, monitored, or treated as if it exists) are acceptable and can be restated in the discharge summary if not ruled out. [facility]
== END 2016-05-19 17:27 | disposition home or self-care (01) | DRG 841 ==
LOC: N.5E 11:37 → SUATTDRO 11:37
PROVIDERS: ADMIT Family Medicine; ATTEND Internal Medicine

== ENCOUNTER 2017-02-13 15:08 | Inpatient (IN) ==
[2017-02-13] MEDS ORDERED: ALBUTEROL 2.5 MG/3 ML NEB RESP TX PRN (16:45)
[2017-02-13] MEDS ORDERED: GLUCAGON 1 MG VIAL IM PRN (17:29)
[2017-02-13] MEDS ORDERED: DEXTROSE 50% 25 GM/50 ML VIAL IV PRN (17:29)
[2017-02-13 17:39] LABS: Basophils # 0.1 10*3/uL (0.0-0.2); Basophils % 0.2 % (0.0-0.8); Hematocrit 35.2 VOL% (35.7-47.0); Hemoglobin 11.2 GM/DL (12.0-16.0); Immature Granulocytes % 4.9 %; Immature Granulocytes Absolute 1.31 #; Lymphocytes # 0.6 10*3/uL (1.4-4.0); Lymphocytes % 2.2 % (21.3-54.2); Mean Corpuscular HGB Conc 31.8 GM/DL (32-36); Mean Corpuscular Hemoglobin 27 PG (27-34); Mean Corpuscular Volume 85.4 FL (87-102); Mean Platelet Volume 10.9 FL (9.6-12.0); Monocytes # 0.8 10*3/uL (0.11-0.8); Monocytes % 3.1 % (1.7-12.7); Neutrophils # 23.9 10*3/uL (1.4-7.4); Neutrophils % 89.6 % (38.7-73.9); Platelet Count 318 T/CUMM (130-400); Red Blood Count 4.12 MC/CUMM (3.8-5.5); Red Cell Distribution Width 17.5 % (9.3-17.3); White Blood Count 26.7 T/CUMM (4-12)
[2017-02-13 18:08] LABS: Albumin 2.2 G/DL (3.4-5.0); Bilirubin,Total 0.6 MG/DL (0.2-1.0); Calcium 8.4 MG/DL (8.5-10.1); Osmolality,Calculated 286.1 MOS/KG (273-304); Thyroid Stimulating Hormone 0.638 uIU/ml (0.358-3.74)
[2017-02-13 18:33] LABS: Burr Cells 1+; Lymphocytes 3 % (20-55); Ovalocytes Few; Platelet Estimate Normal; Poikilocytosis 2+; Segmented Neutrophils 95 % (50-85); Tear Drop Cells Few; Total Cells Counted 100
[2017-02-13] MEDS: PANTOPRAZOLE 40 MG TABLET PO SCH (18:45)
[2017-02-13] MEDS: MEGESTROL 400 MG/10 ML UDCUP PO SCH (18:45)
[2017-02-13] MEDS: ALBUTEROL/IPRATROPIUM 3 ML NEB RESP TX SCH (20:23)
[2017-02-13] MEDS: guaiFENesin/DM ER 600-30 MG TABLET PO SCH (22:27)
[2017-02-13] MEDS: INSULIN LISPRO 100 UNIT/ML SUBCUT SCH (22:30)
[2017-02-14] MEDS: ALBUTEROL/IPRATROPIUM 3 ML NEB RESP TX SCH ×4 (00:35→20:42)
[2017-02-14] MEDS: ACETAMINOPHEN 325 MG TABLET PO PRN ×2 (00:42→08:53)
[2017-02-14] MEDS: PIPERACILLIN/TAZOBACTAM 3,375 MG in SODIUM CHLORIDE 0.9% 100 ML IV SCH (00:44)
[2017-02-14] MEDS: LEVOFLOXACIN INJ 750 MG in PREMIX 1 EACH IV SCH (01:00)
[2017-02-14 01:15] LABS: Apearance,Urine CLOUDY (Clear); Bacteria,Urine Few /HPF (Few); Bilirubin,Urine Negative (Negative); Blood, Urine Negative (Negative); Glucose,Urine (UA) Negative (Negative); Ketones,Urine Negative (Negative); Mucus,Urine Moderate /LPF (Occasional); Nitrite,Urine Negative (Negative); Protein,Urine 100 MG/DL; Urine Color Amber (Yellow); Urine Specific Gravity 1.015 (1.001-1.035); WBC,Urine 190 /HPF (0-6)
[2017-02-14] MEDS: VANCOMYCIN INJ 750 MG in SODIUM CHLORIDE 0.45% 250 ML IV SCH (02:59)
[2017-02-14] MEDS ORDERED: KETOROLAC 15 MG/1 ML VIAL IV ONE (03:00)
[2017-02-14 05:03] LABS: Basophils % 0.2 % (0.0-0.8); Hematocrit 30.9 VOL% (35.7-47.0); Hemoglobin 10.2 GM/DL (12.0-16.0); Immature Granulocytes % 4.2 %; Immature Granulocytes Absolute 0.82 #; Lymphocytes # 0.7 10*3/uL (1.4-4.0); Lymphocytes % 3.4 % (21.3-54.2); Mean Corpuscular Hemoglobin 28 PG (27-34); Mean Corpuscular Volume 84.7 FL (87-102); Mean Platelet Volume 11.5 FL (9.6-12.0); Monocytes # 0.8 10*3/uL (0.11-0.8); Monocytes % 4.2 % (1.7-12.7); Neutrophils # 17.4 10*3/uL (1.4-7.4); Platelet Count 245 T/CUMM (130-400); Red Blood Count 3.65 MC/CUMM (3.8-5.5); Red Cell Distribution Width 17.6 % (9.3-17.3); White Blood Count 19.7 T/CUMM (4-12)
[2017-02-14 05:21] LABS: Calcium 7.8 MG/DL (8.5-10.1); Osmolality,Calculated 285.3 MOS/KG (273-304); Potassium 3.7 MMOL/L (3.5-5.1)
[2017-02-14 06:02] LABS: Acanthocytes 1+; Anisocytosis 1+; Band Neutrophils 1 % (0-10); Lymphocytes 5 % (20-55); Myelocytes 1 %; Segmented Neutrophils 91 % (50-85); Total Cells Counted 100
[2017-02-14 06:03] LABS: Ovalocytes 1+; Platelet Estimate Normal
[2017-02-14] MEDS: INSULIN LISPRO 100 UNIT/ML SUBCUT SCH ×4 (08:51→22:04)
[2017-02-14] MEDS: MEGESTROL 400 MG/10 ML UDCUP PO SCH (08:52)
[2017-02-14] MEDS: guaiFENesin/DM ER 600-30 MG TABLET PO SCH ×2 (08:53→22:06)
[2017-02-14] MEDS: PANTOPRAZOLE 40 MG TABLET PO SCH ×2 (08:53→22:06)
[2017-02-14] MEDS ORDERED: ACETAMINOPHEN 325 MG TABLET PO PRN (10:16)
[2017-02-14] MEDS: CLORAZEPATE 3.75 MG TABLET PO SCH ×2 (10:29→22:06)
[2017-02-14] MEDS ORDERED: ONDANSETRON 4 MG PO PRN (14:28)
[2017-02-14] MEDS: PARoxetine 20 MG TABLET PO SCH (14:54)
[2017-02-14] MEDS: FERROUS GLUCONATE 324 MG TABLET PO SCH (22:04)
[2017-02-14] MEDS: HydrOXYzine PAMOATE 25 MG CAPSULE PO SCH (22:05)
[2017-02-14] MEDS: SIMVASTATIN 40 MG TABLET PO SCH (22:06)
[2017-02-15] MEDS: LEVOFLOXACIN INJ 750 MG in PREMIX 1 EACH IV SCH (02:11)
[2017-02-15] MEDS: ALBUTEROL/IPRATROPIUM 3 ML NEB RESP TX SCH ×5 (02:38→23:47)
[2017-02-15 03:04] LABS: Basophils % 0.2 % (0.0-0.8); Hematocrit 29.2 VOL% (35.7-47.0); Hemoglobin 9.6 GM/DL (12.0-16.0); Immature Granulocytes % 4.2 %; Immature Granulocytes Absolute 0.57 #; Lymphocytes # 0.7 10*3/uL (1.4-4.0); Lymphocytes % 4.8 % (21.3-54.2); Mean Corpuscular HGB Conc 32.9 GM/DL (32-36); Mean Corpuscular Hemoglobin 27 PG (27-34); Mean Corpuscular Volume 83.4 FL (87-102); Mean Platelet Volume 10.9 FL (9.6-12.0); Monocytes # 0.7 10*3/uL (0.11-0.8); Neutrophils # 11.6 10*3/uL (1.4-7.4); Neutrophils % 85.8 % (38.7-73.9); Platelet Count 286 T/CUMM (130-400); Red Cell Distribution Width 17.4 % (9.3-17.3); White Blood Count 13.5 T/CUMM (4-12)
[2017-02-15 03:27] LABS: Calcium 7.7 MG/DL (8.5-10.1); Osmolality,Calculated 285.1 MOS/KG (273-304); Potassium 3.7 MMOL/L (3.5-5.1)
[2017-02-15 03:51] LABS: Band Neutrophils 3 % (0-10); Burr Cells 1+; Elliptocytes Few; Lymphocytes 5 % (20-55); Platelet Estimate Normal; Poikilocytosis 1+; Segmented Neutrophils 90 % (50-85); Total Cells Counted 100
[2017-02-15] MEDS: MEGESTROL 400 MG/10 ML UDCUP PO SCH (10:47)
[2017-02-15] MEDS: LOSARTAN 50 MG TABLET PO SCH (10:49)
[2017-02-15] MEDS: CLORAZEPATE 3.75 MG TABLET PO SCH ×2 (10:49→21:48)
[2017-02-15] MEDS: amLODIPine 10 MG TABLET PO SCH (10:49)
[2017-02-15] MEDS: PARoxetine 20 MG TABLET PO SCH (10:50)
[2017-02-15] MEDS: guaiFENesin/DM ER 600-30 MG TABLET PO SCH ×2 (10:50→21:47)
[2017-02-15] MEDS: ASPIRIN EC 81 MG TABLET PO SCH (10:50)
[2017-02-15] MEDS: CETIRIZINE 10 MG TABLET PO SCH (10:51)
[2017-02-15] MEDS: HydrOXYzine PAMOATE 25 MG CAPSULE PO SCH ×2 (10:51→21:47)
[2017-02-15] MEDS: PANTOPRAZOLE 40 MG TABLET PO SCH ×2 (10:51→21:48)
[2017-02-15] MEDS: FERROUS GLUCONATE 324 MG TABLET PO SCH ×2 (10:53→21:48)
[2017-02-15] MEDS: metFORMIN 500 MG TABLET PO SCH (10:54)
[2017-02-15] MEDS: INSULIN LISPRO 100 UNIT/ML SUBCUT SCH ×4 (12:28→21:48)
[2017-02-15] MEDS: VANCOMYCIN INJ 750 MG in SODIUM CHLORIDE 0.45% 250 ML IV SCH (16:59)
[2017-02-15] MEDS: SIMVASTATIN 40 MG TABLET PO SCH (21:48)
[2017-02-16] MEDS: LEVOFLOXACIN INJ 750 MG in PREMIX 1 EACH IV SCH (01:16)
[2017-02-16] MEDS: VANCOMYCIN INJ 750 MG in SODIUM CHLORIDE 0.45% 250 ML IV SCH ×2 (02:19→05:20)
[2017-02-16] MEDS: CLORAZEPATE 3.75 MG TABLET PO PRN (04:49)
[2017-02-16 06:49] LABS: Basophils % 0.2 % (0.0-0.8); Eosinophils % 0.1 % (0.00-10.9); Hematocrit 30.7 VOL% (35.7-47.0); Hemoglobin 10.4 GM/DL (12.0-16.0); Immature Granulocytes % 5.1 %; Immature Granulocytes Absolute 0.74 #; Lymphocytes # 0.8 10*3/uL (1.4-4.0); Lymphocytes % 5.2 % (21.3-54.2); Mean Corpuscular HGB Conc 33.9 GM/DL (32-36); Mean Corpuscular Hemoglobin 28 PG (27-34); Mean Corpuscular Volume 81.9 FL (87-102); Mean Platelet Volume 10.5 FL (9.6-12.0); Monocytes # 0.8 10*3/uL (0.11-0.8); Monocytes % 5.7 % (1.7-12.7); Neutrophils # 12.1 10*3/uL (1.4-7.4); Neutrophils % 83.7 % (38.7-73.9); Platelet Count 315 T/CUMM (130-400); Red Blood Count 3.75 MC/CUMM (3.8-5.5); Red Cell Distribution Width 17.5 % (9.3-17.3); White Blood Count 14.5 T/CUMM (4-12)
[2017-02-16] MEDS: ALBUTEROL/IPRATROPIUM 3 ML NEB RESP TX SCH ×3 (07:09→20:12)
[2017-02-16 07:17] LABS: Eosinophils 1 % (0-10); Lymphocytes 5 % (20-55); Segmented Neutrophils 84 % (50-85); Total Cells Counted 100
[2017-02-16 07:18] LABS: Burr Cells Slight; Giant Platelets Few; Hypochromasia 1+; Ovalocytes Slight; Platelet Estimate Adequate
[2017-02-16 07:21] LABS: Calcium 7.5 MG/DL (8.5-10.1); Potassium 3.7 MMOL/L (3.5-5.1)
[2017-02-16] MEDS: INSULIN LISPRO 100 UNIT/ML SUBCUT SCH ×4 (08:01→22:20)
[2017-02-16] MEDS: CETIRIZINE 10 MG TABLET PO SCH (09:44)
[2017-02-16] MEDS: FERROUS GLUCONATE 324 MG TABLET PO SCH ×2 (09:44→22:20)
[2017-02-16] MEDS: LOSARTAN 50 MG TABLET PO SCH (09:44)
[2017-02-16] MEDS: amLODIPine 10 MG TABLET PO SCH (09:44)
[2017-02-16] MEDS: PARoxetine 20 MG TABLET PO SCH (09:44)
[2017-02-16] MEDS: PANTOPRAZOLE 40 MG TABLET PO SCH ×2 (09:44→22:17)
[2017-02-16] MEDS: guaiFENesin/DM ER 600-30 MG TABLET PO SCH ×2 (09:44→22:18)
[2017-02-16] MEDS: HydrOXYzine PAMOATE 25 MG CAPSULE PO SCH ×2 (09:44→22:18)
[2017-02-16] MEDS: MEGESTROL 400 MG/10 ML UDCUP PO SCH (09:44)
[2017-02-16] MEDS: CLORAZEPATE 3.75 MG TABLET PO SCH ×2 (09:44→22:20)
[2017-02-16] MEDS: ASPIRIN EC 81 MG TABLET PO SCH (09:44)
[2017-02-16] MEDS: metFORMIN 500 MG TABLET PO SCH (09:44)
[2017-02-16] MEDS: SODIUM CHLORIDE 0.9% 1,000 ML IV SCH (14:49)
[2017-02-16] MEDS ORDERED: ZINC OXIDE PASTE 113 GM TUBE TOP PRN (16:19)
[2017-02-16] MEDS: prednisoLONE ACETATE 1% OPH SUSP 5 ML BOTTLE BOTH EYES SCH ×2 (16:38→22:22)
[2017-02-16] MEDS ORDERED: ALUMINUM/MAGNES/SIMETH MAX STR 30 ML UDCUP PO PRN (18:07)
[2017-02-16] MEDS: SIMVASTATIN 40 MG TABLET PO SCH (22:17)
[2017-02-16] MEDS: ONDANSETRON 4 MG/2 ML VIAL IV PRN (22:22)
[2017-02-17] MEDS: ALBUTEROL/IPRATROPIUM 3 ML NEB RESP TX SCH ×4 (01:22→20:07)
[2017-02-17] MEDS: CLORAZEPATE 3.75 MG TABLET PO PRN (05:52)
[2017-02-17 07:11] LABS: Basophils % 0.2 % (0.0-0.8); Eosinophils # 0.1 10*3/uL (0.0-0.87); Eosinophils % 0.4 % (0.00-10.9); Hematocrit 30.2 VOL% (35.7-47.0); Hemoglobin 9.9 GM/DL (12.0-16.0); Immature Granulocytes % 4.4 %; Lymphocytes # 0.9 10*3/uL (1.4-4.0); Lymphocytes % 5.7 % (21.3-54.2); Mean Corpuscular HGB Conc 32.8 GM/DL (32-36); Mean Corpuscular Hemoglobin 27 PG (27-34); Mean Corpuscular Volume 83.4 FL (87-102); Mean Platelet Volume 10.5 FL (9.6-12.0); Monocytes # 0.9 10*3/uL (0.11-0.8); Monocytes % 5.4 % (1.7-12.7); Neutrophils # 13.5 10*3/uL (1.4-7.4); Neutrophils % 83.9 % (38.7-73.9); Platelet Count 364 T/CUMM (130-400); Red Blood Count 3.62 MC/CUMM (3.8-5.5); Red Cell Distribution Width 17.8 % (9.3-17.3); White Blood Count 16.1 T/CUMM (4-12)
[2017-02-17 07:27] LABS: Calcium 7.3 MG/DL (8.5-10.1); Osmolality,Calculated 282.8 MOS/KG (273-304); Potassium 3.6 MMOL/L (3.5-5.1)
[2017-02-17 07:40] LABS: Band Neutrophils 1 % (0-10); Eosinophils 1 % (0-10); Lymphocytes 2 % (20-55); Segmented Neutrophils 93 % (50-85); Total Cells Counted 100
[2017-02-17 07:41] LABS: Burr Cells Slight; Elliptocytes Few; Giant Platelets Few; Hypochromasia 1+; Platelet Estimate Adequate
[2017-02-17] MEDS: CLORAZEPATE 3.75 MG TABLET PO SCH (10:17)
[2017-02-17] MEDS: amLODIPine 10 MG TABLET PO SCH (10:18)
[2017-02-17] MEDS: ASPIRIN EC 81 MG TABLET PO SCH (10:18)
[2017-02-17] MEDS: LOSARTAN 50 MG TABLET PO SCH (10:18)
[2017-02-17] MEDS: HydrOXYzine PAMOATE 25 MG CAPSULE PO SCH ×2 (10:19→23:13)
[2017-02-17] MEDS: guaiFENesin/DM ER 600-30 MG TABLET PO SCH ×2 (10:19→23:09)
[2017-02-17] MEDS: PANTOPRAZOLE 40 MG TABLET PO SCH ×2 (10:19→23:09)
[2017-02-17] MEDS: INSULIN LISPRO 100 UNIT/ML SUBCUT SCH ×4 (10:19→23:08)
[2017-02-17] MEDS: PARoxetine 20 MG TABLET PO SCH (10:19)
[2017-02-17] MEDS: MEGESTROL 400 MG/10 ML UDCUP PO SCH (10:19)
[2017-02-17] MEDS: prednisoLONE ACETATE 1% OPH SUSP 5 ML BOTTLE BOTH EYES SCH ×3 (10:20→23:09)
[2017-02-17] MEDS: CETIRIZINE 10 MG TABLET PO SCH (10:20)
[2017-02-17] MEDS: FERROUS GLUCONATE 324 MG TABLET PO SCH ×2 (10:25→23:07)
[2017-02-17] MEDS: SODIUM CHLORIDE 0.9% 1,000 ML IV SCH (10:33)
[2017-02-17] MEDS: ONDANSETRON 4 MG/2 ML VIAL IV PRN (10:34)
[2017-02-17] MEDS: LEVOFLOXACIN INJ 750 MG in PREMIX 1 EACH IV SCH (11:51)
[2017-02-17] MEDS: NICOTINE 7 MG/24 HR PATCH TRANSDERM SCH (12:33)
[2017-02-17] MEDS ORDERED: LORazepam 2 MG/1 ML VIAL IV ONE ×2 (12:39→22:00)
[2017-02-17] MEDS: SODIUM CHLORIDE 0.45% 1,000 ML IV SCH (14:21)
[2017-02-17] MEDS: CLORAZEPATE 7.5 MG TABLET PO SCH ×2 (14:21→23:12)
[2017-02-17] MEDS: SIMVASTATIN 40 MG TABLET PO SCH (23:13)
[2017-02-18] MEDS: ALBUTEROL/IPRATROPIUM 3 ML NEB RESP TX SCH ×3 (01:02→12:57)
[2017-02-18] MEDS: INSULIN LISPRO 100 UNIT/ML SUBCUT SCH ×2 (07:38→12:38)
[2017-02-18] MEDS: SODIUM CHLORIDE 0.45% 1,000 ML IV SCH (07:38)
[2017-02-18 07:58] LABS: Basophils # 0.1 10*3/uL (0.0-0.2); Basophils % 0.3 % (0.0-0.8); Eosinophils # 0.1 10*3/uL (0.0-0.87); Eosinophils % 0.6 % (0.00-10.9); Hemoglobin 9.5 GM/DL (12.0-16.0); Immature Granulocytes % 4.4 %; Lymphocytes % 5.3 % (21.3-54.2); Mean Corpuscular HGB Conc 32.8 GM/DL (32-36); Mean Corpuscular Hemoglobin 27 PG (27-34); Mean Corpuscular Volume 83.3 FL (87-102); Mean Platelet Volume 10.1 FL (9.6-12.0); Monocytes # 1.1 10*3/uL (0.11-0.8); Monocytes % 5.8 % (1.7-12.7); Neutrophils # 15.2 10*3/uL (1.4-7.4); Neutrophils % 83.6 % (38.7-73.9); Platelet Count 360 T/CUMM (130-400); Red Blood Count 3.48 MC/CUMM (3.8-5.5); Red Cell Distribution Width 17.9 % (9.3-17.3); White Blood Count 18.2 T/CUMM (4-12)
[2017-02-18 08:17] LABS: Band Neutrophils 3 % (0-10); Burr Cells Slight; Hypochromasia 1+; Lymphocytes 6 % (20-55); Microcytosis Slight; Ovalocytes Slight; Platelet Estimate Adequate; Segmented Neutrophils 87 % (50-85); Total Cells Counted 100
[2017-02-18 08:36] LABS: Albumin 2.1 G/DL (3.4-5.0); Bilirubin,Total 0.5 MG/DL (0.2-1.0); Calcium 7.3 MG/DL (8.5-10.1); Magnesium 2.2 MG/DL (1.8-2.4); Osmolality,Calculated 281.8 MOS/KG (273-304); Potassium 3.5 MMOL/L (3.5-5.1); Total Protein 4.4 G/DL (6.4-8.3)
[2017-02-18] MEDS: LEVOFLOXACIN INJ 750 MG in PREMIX 1 EACH IV SCH (08:57)
[2017-02-18] MEDS: LOSARTAN 50 MG TABLET PO SCH (10:11)
[2017-02-18] MEDS: CETIRIZINE 10 MG TABLET PO SCH (10:11)
[2017-02-18] MEDS: MEGESTROL 400 MG/10 ML UDCUP PO SCH (10:11)
[2017-02-18] MEDS: PANTOPRAZOLE 40 MG TABLET PO SCH (10:11)
[2017-02-18] MEDS: guaiFENesin/DM ER 600-30 MG TABLET PO SCH (10:12)
[2017-02-18] MEDS: PARoxetine 20 MG TABLET PO SCH (10:12)
[2017-02-18] MEDS: ASPIRIN EC 81 MG TABLET PO SCH (10:12)
[2017-02-18] MEDS: HydrOXYzine PAMOATE 25 MG CAPSULE PO SCH (10:12)
[2017-02-18] MEDS: CLORAZEPATE 7.5 MG TABLET PO SCH (10:12)
[2017-02-18] MEDS: amLODIPine 10 MG TABLET PO SCH (10:12)
[2017-02-18] MEDS: NICOTINE 7 MG/24 HR PATCH TRANSDERM SCH (10:13)
[2017-02-18] MEDS: FERROUS GLUCONATE 324 MG TABLET PO SCH (10:13)
[2017-02-18] MEDS: prednisoLONE ACETATE 1% OPH SUSP 5 ML BOTTLE BOTH EYES SCH (10:13)
[2017-02-18] MEDS: ONDANSETRON 4 MG/2 ML VIAL IV PRN (10:16)
[2017-02-18 12:46] VITALS: BP 125/64
[2017-02-19] MEDS ORDERED: LEVOFLOXACIN 750 MG TABLET PO SCH (09:00)
== END 2017-02-18 15:38 | disposition home health service (06) | DRG 871 ==
LOC: SUATTDRO 15:40 → N.2E 15:40
PROVIDERS: ADMIT Family Medicine; ATTEND Internal Medicine

== ENCOUNTER 2017-03-11 04:57 | Inpatient (IN) ==
[2017-03-11] MEDS ORDERED: MORPHINE 2 MG/1 ML SYRINGE IV STA (05:40)
[2017-03-11] MEDS ORDERED: SODIUM CHLORIDE 0.9% 1,000 ML IV STA (05:40)
[2017-03-11] MEDS ORDERED: ONDANSETRON 4 MG/2 ML VIAL IV STA (05:40)
[2017-03-11] MEDS ORDERED: MORPHINE 2 MG/1 ML SYRINGE ONE (06:11)
[2017-03-11] MEDS ORDERED: ONDANSETRON 4 MG/2 ML VIAL ONE (06:11)
[2017-03-11 06:34] LABS: Basophils % 0.1 % (0.0-0.8); Eosinophils % 0.3 % (0.00-10.9); Hematocrit 30.9 VOL% (35.7-47.0); Hemoglobin 10.3 GM/DL (12.0-16.0); Immature Granulocytes % 1.2 %; Immature Granulocytes Absolute 0.13 #; Lymphocytes # 0.9 10*3/uL (1.4-4.0); Lymphocytes % 8.3 % (21.3-54.2); Mean Corpuscular HGB Conc 33.3 GM/DL (32-36); Mean Corpuscular Hemoglobin 27 PG (27-34); Mean Corpuscular Volume 82.2 FL (87-102); Mean Platelet Volume 10.9 FL (9.6-12.0); Monocytes % 8.9 % (1.7-12.7); Neutrophils % 81.2 % (38.7-73.9); Platelet Count 278 T/CUMM (130-400); Red Blood Count 3.76 MC/CUMM (3.8-5.5); Red Cell Distribution Width 19.2 % (9.3-17.3)
[2017-03-11] MEDS ORDERED: LORazepam 2 MG/1 ML VIAL IV STA ×2 (06:41→10:32)
[2017-03-11] MEDS ORDERED: LORazepam 2 MG/1 ML VIAL ONE (06:43)
[2017-03-11 07:37] LABS: Lactic Acid 2.6 MMOL/L (0.4-2.0)
[2017-03-11] MEDS ORDERED: SODIUM CHLORIDE 0.9% 1,600 ML IV ONE (07:39)
[2017-03-11 07:48] LABS: Apearance,Urine CLOUDY (Clear); Bilirubin,Urine Negative (Negative); Blood, Urine Negative (Negative); Glucose,Urine (UA) Negative (Negative); Hyaline Casts,Urine 9 /LPF (0-3); Ketones,Urine Negative (Negative); Mucus,Urine Many /LPF (Occasional); Nitrite,Urine Negative (Negative); Protein,Urine 100 MG/DL; RBC,Urine 1 /HPF (0-4); Urine Color Amber (Yellow); Urine Specific Gravity 1.021 (1.001-1.035); Urine Urobilinogen < 2.0 EU/DL (0.2-1.0); WBC,Urine 5 /HPF (0-6)
[2017-03-11] MEDS ORDERED: LEVOFLOXACIN INJ 150 ML IV ONE (07:51)
[2017-03-11] MEDS ORDERED: LEVOFLOXACIN INJ 750 MG in PREMIX 1 EACH IV SCH (08:00)
[2017-03-11 08:07] LABS: Albumin 2.2 G/DL (3.4-5.0); Bilirubin,Total 0.5 MG/DL (0.2-1.0); Calcium 8.3 MG/DL (8.5-10.1); Osmolality,Calculated 298.3 MOS/KG (273-304); Potassium 2.7 MMOL/L (3.5-5.1); Total Protein 4.7 G/DL (6.4-8.3)
[2017-03-11] MEDS ORDERED: ACETAMINOPHEN 325 MG TABLET PO PRN (09:07)
[2017-03-11] MEDS ORDERED: DEXTROSE 50% 25 GM/50 ML VIAL IV PRN (09:07)
[2017-03-11] MEDS ORDERED: GLUCAGON 1 MG VIAL IM PRN (09:07)
[2017-03-11] MEDS ORDERED: ONDANSETRON 4 MG/2 ML VIAL IV PRN (09:07)
[2017-03-11] MEDS ORDERED: ENOXAPARIN 40 MG/0.4 ML SYRINGE ONE (09:29)
[2017-03-11] MEDS ORDERED: [UNRECOGNIZED DRUG - OTHER] IV SCH (09:30)
[2017-03-11] MEDS ORDERED: SODIUM CHLORIDE IV SCH (09:30)
[2017-03-11] MEDS ORDERED: SODIUM CHLORIDE 0.9% 1,000 ML IV SCH (09:30)
[2017-03-11] MEDS ORDERED: POTASSIUM CHLORIDE IV SCH (09:30)
[2017-03-11] MEDS: ENOXAPARIN 40 MG/0.4 ML SYRINGE SUBCUT SCH (09:31)
[2017-03-11] MEDS ORDERED: ALBUTEROL 2.5 MG/3 ML NEB RESP TX PRN (09:35)
[2017-03-11] MEDS: POTASSIUM CHLORIDE INJ 30 MEQ in SODIUM CHLORIDE 0.45% 1,000 ML IV SCH (11:11)
[2017-03-11] MEDS ORDERED: MEROPENEM 1,000 MG in SODIUM CHLORIDE 0.9% 100 ML IV STA (11:36)
[2017-03-11] MEDS ORDERED: POTASSIUM CHLORIDE 20 MEQ TABLET PO ONE (11:38)
[2017-03-11] MEDS: INSULIN LISPRO 100 UNIT/ML SUBCUT SCH ×3 (11:47→21:30)
[2017-03-11] MEDS ORDERED: MEROPENEM 1,000 MG VIAL IV ONE (12:15)
[2017-03-11] MEDS: ALBUTEROL/IPRATROPIUM 3 ML NEB RESP TX SCH ×2 (14:14→21:10)
[2017-03-11] MEDS ORDERED: traMADol 50 MG TABLET PO PRN (14:16)
[2017-03-11] MEDS: AMITRIPTYLINE 10 MG TABLET PO PRN (14:59)
[2017-03-11] MEDS: CLORAZEPATE 3.75 MG TABLET PO PRN (18:04)
[2017-03-11] MEDS: MEROPENEM 1,000 MG in SODIUM CHLORIDE 0.9% 100 ML IV SCH (21:29)
[2017-03-11] MEDS ORDERED: SODIUM CHLORIDE 0.9% 250 ML IV ONE (23:20)
[2017-03-12] MEDS ORDERED: DILTIAZEM INJ 100 MG in SODIUM CHLORIDE 0.9% 100 ML IV SCH (01:00)
[2017-03-12] MEDS: POTASSIUM CHLORIDE INJ 30 MEQ in SODIUM CHLORIDE 0.45% 1,000 ML IV SCH (01:14)
[2017-03-12] MEDS: CLORAZEPATE 3.75 MG TABLET PO PRN (04:17)
[2017-03-12] MEDS ORDERED: ONDANSETRON ODT 4 MG TABLET PO PRN (07:39)
[2017-03-12 08:21] LABS: Basophils % 0.1 % (0.0-0.8); Eosinophils % 0.4 % (0.00-10.9); Hematocrit 26.8 VOL% (35.7-47.0); Hemoglobin 8.9 GM/DL (12.0-16.0); Lymphocytes # 0.8 10*3/uL (1.4-4.0); Lymphocytes % 7.5 % (21.3-54.2); Mean Corpuscular HGB Conc 33.2 GM/DL (32-36); Mean Corpuscular Hemoglobin 27 PG (27-34); Mean Corpuscular Volume 82.5 FL (87-102); Mean Platelet Volume 10.6 FL (9.6-12.0); Monocytes # 0.9 10*3/uL (0.11-0.8); Monocytes % 8.8 % (1.7-12.7); NRBC # 0.06 10*3/uL; Neutrophils # 8.1 10*3/uL (1.4-7.4); Neutrophils % 81.2 % (38.7-73.9); Platelet Count 237 T/CUMM (130-400); Red Blood Count 3.25 MC/CUMM (3.8-5.5); Red Cell Distribution Width 19.5 % (9.3-17.3)
[2017-03-12 08:41] LABS: Calcium 7.5 MG/DL (8.5-10.1); Osmolality,Calculated 297.1 MOS/KG (273-304); Potassium 3.5 MMOL/L (3.5-5.1)
[2017-03-12] MEDS ORDERED: PANTOPRAZOLE 40 MG TABLET PO SCH (09:00)
[2017-03-12] MEDS: INSULIN LISPRO 100 UNIT/ML SUBCUT SCH ×4 (09:11→21:30)
[2017-03-12] MEDS: ENOXAPARIN 40 MG/0.4 ML SYRINGE SUBCUT SCH (09:12)
[2017-03-12] MEDS: MEROPENEM 1,000 MG in SODIUM CHLORIDE 0.9% 100 ML IV SCH ×3 (09:12→23:15)
[2017-03-12] MEDS: FERROUS GLUCONATE 324 MG TABLET PO SCH ×2 (09:13→21:30)
[2017-03-12] MEDS: POTASSIUM CHLORIDE 10 MEQ TABLET PO SCH ×2 (09:13→17:21)
[2017-03-12] MEDS: LOSARTAN 50 MG TABLET PO SCH (09:13)
[2017-03-12] MEDS: amLODIPine 10 MG TABLET PO SCH (09:13)
[2017-03-12] MEDS: HydrOXYzine PAMOATE 25 MG CAPSULE PO SCH ×2 (09:13→21:30)
[2017-03-12] MEDS: ASPIRIN EC 81 MG TABLET PO SCH (09:13)
[2017-03-12] MEDS: PANTOPRAZOLE 40 MG TABLET PO SCH ×2 (09:13→21:30)
[2017-03-12] MEDS: AMITRIPTYLINE 10 MG TABLET PO PRN (09:19)
[2017-03-12] MEDS ORDERED: POTASSIUM CHLORIDE 20 MEQ TABLET PO ONE (09:49)
[2017-03-12] MEDS ORDERED: MAGNESIUM SULF RIDER 2 GM in PREMIX 1 EACH IV ONE (09:49)
[2017-03-12] MEDS: DILTIAZEM 30 MG TABLET PO SCH ×3 (10:43→21:30)
[2017-03-12] MEDS: SODIUM CHLORIDE 0.45% 1,000 ML IV SCH ×2 (10:44→23:36)
[2017-03-12] MEDS ORDERED: DILTIAZEM 30 MG TABLET PO SCH (13:00)
[2017-03-12] MEDS ORDERED: ZIPRASIDONE 20 MG/1 ML VIAL IM PRN (22:04)
[2017-03-12] MEDS: NICOTINE 7 MG/24 HR PATCH TRANSDERM SCH (23:35)
[2017-03-13] MEDS: AMITRIPTYLINE 10 MG TABLET PO PRN ×2 (03:06→10:42)
[2017-03-13] MEDS: NICOTINE 7 MG/24 HR PATCH TRANSDERM SCH (03:45)
[2017-03-13] MEDS: MEROPENEM 1,000 MG in SODIUM CHLORIDE 0.9% 100 ML IV SCH (06:13)
[2017-03-13] MEDS ORDERED: NICOTINE 7 MG/24 HR PATCH TRANSDERM SCH (09:00)
[2017-03-13] MEDS: INSULIN LISPRO 100 UNIT/ML SUBCUT SCH ×2 (09:35→11:52)
[2017-03-13] MEDS: ENOXAPARIN 40 MG/0.4 ML SYRINGE SUBCUT SCH (09:37)
[2017-03-13] MEDS: amLODIPine 10 MG TABLET PO SCH (09:37)
[2017-03-13] MEDS: ASPIRIN EC 81 MG TABLET PO SCH (09:37)
[2017-03-13] MEDS: LOSARTAN 50 MG TABLET PO SCH (09:37)
[2017-03-13] MEDS: HydrOXYzine PAMOATE 25 MG CAPSULE PO SCH (09:37)
[2017-03-13] MEDS: PANTOPRAZOLE 40 MG TABLET PO SCH (09:37)
[2017-03-13] MEDS: FERROUS GLUCONATE 324 MG TABLET PO SCH (09:37)
[2017-03-13] MEDS: DILTIAZEM 30 MG TABLET PO SCH ×2 (09:38→13:16)
[2017-03-13] MEDS: POTASSIUM CHLORIDE 10 MEQ TABLET PO SCH (09:38)
[2017-03-13 11:18] LABS: Basophils % 0.1 % (0.0-0.8); Eosinophils # 0.1 10*3/uL (0.0-0.87); Eosinophils % 0.9 % (0.00-10.9); Hematocrit 29.5 VOL% (35.7-47.0); Hemoglobin 9.4 GM/DL (12.0-16.0); Immature Granulocytes % 1.6 %; Immature Granulocytes Absolute 0.18 #; Lymphocytes # 1.1 10*3/uL (1.4-4.0); Lymphocytes % 9.8 % (21.3-54.2); Mean Corpuscular HGB Conc 31.9 GM/DL (32-36); Mean Corpuscular Hemoglobin 27 PG (27-34); Mean Corpuscular Volume 84.5 FL (87-102); Mean Platelet Volume 10.1 FL (9.6-12.0); Monocytes # 0.8 10*3/uL (0.11-0.8); Monocytes % 6.6 % (1.7-12.7); Neutrophils # 9.2 10*3/uL (1.4-7.4); Platelet Count 296 T/CUMM (130-400); Red Blood Count 3.49 MC/CUMM (3.8-5.5); Red Cell Distribution Width 19.9 % (9.3-17.3); White Blood Count 11.4 T/CUMM (4-12)
[2017-03-13 13:19] VITALS: BP 122/64
[2017-03-13] MEDS ORDERED: MEROPENEM 1,000 MG in SYRINGE 1 EACH IV SCH (15:00)
== END 2017-03-13 14:30 | disposition home health service (06) | DRG 871 ==
LOC: EDBD → EDUNIT# → N.ED 04:57 → SUATTDRO 08:30 → N.EDINP 08:38 → N.5E 12:44 → N.TELEN 03-12 01:02
PROVIDERS: ADMIT Internal Medicine; ATTEND Internal Medicine Infectious Disease